=== PATIENT | male | born 1990 | race Caucasian/White ===

== ENCOUNTER → 2016-06-16 | Outpatient (CLI) | payer OTHER ==
[2016-06-16 11:34] LABS: MEAN CORPUSCULAR HEMOGLOBIN 30.6 pg (27.0-33.0); MEAN CORPUSCULAR VOLUME 87.4 fl (80.0-96.0); RED CELL DISTRIBUTION WIDTH 12.3 % (11.5-14.5)
[2016-06-16 11:58] LABS: ALBUMIN 4.4 GM/DL (3.2-5.2); ALBUMIN/GLOBULIN RATIO 1.69 (1.00-1.93); ALKALINE PHOSPHATASE 95 U/L (45-117); ALT/SGPT 63 U/L (12-78); ANION GAP 7 MEQ/L (8-16); AST/SGOT 28 U/L (15-37); BILIRUBIN,DIRECT 0.2 MG/DL (0.0-0.2); BILIRUBIN,TOTAL 0.7 MG/DL (0.2-1.0); BLOOD UREA NITROGEN 20 MG/DL (7-18); CALCIUM LEVEL 9.3 MG/DL (8.5-10.1); CARBON DIOXIDE LEVEL 31 MEQ/L (21-32); CHLORIDE LEVEL 104 MEQ/L (98-107); CREATININE FOR GFR 0.85 MG/DL (0.70-1.30); GLOMERULAR FILTRATION RATE > 60.0 (>60); GLUCOSE, FASTING 81 MG/DL (70-105); PHOSPHORUS LEVEL 3.1 MG/DL (2.5-4.9); POTASSIUM SERUM 4.2 MEQ/L (3.5-5.1); SODIUM LEVEL 142 MEQ/L (136-145)
== END ==
LOC: M LAB 11:05
PROVIDERS: ATTEND Podiatrist Foot & Ankle Surgery
DX: B35.1 Tinea unguium (principal); Z79.899 Other long term (current) drug therapy

== ENCOUNTER → 2016-07-28 | Outpatient (CLI) | payer OTHER ==
[2016-07-28 08:50] LABS: MEAN CORPUSCULAR HEMOGLOBIN 30.7 pg (27.0-33.0); MEAN CORPUSCULAR HGB CONC 34.2 g/dl (32.0-36.5); MEAN CORPUSCULAR VOLUME 89.7 fl (80.0-96.0); RED CELL DISTRIBUTION WIDTH 12.7 % (11.5-14.5); WHITE BLOOD COUNT 5.6 K/mm3 (4.0-10.0)
[2016-07-28 09:22] LABS: ALBUMIN 4.2 GM/DL (3.2-5.2); ALBUMIN/GLOBULIN RATIO 1.62 (1.00-1.93); ALKALINE PHOSPHATASE 97 U/L (45-117); ALT/SGPT 46 U/L (12-78); ANION GAP 8 MEQ/L (8-16); AST/SGOT 25 U/L (15-37); BILIRUBIN,DIRECT 0.1 MG/DL (0.0-0.2); BILIRUBIN,TOTAL 0.5 MG/DL (0.2-1.0); BLOOD UREA NITROGEN 18 MG/DL (7-18); CALCIUM LEVEL 9.1 MG/DL (8.5-10.1); CARBON DIOXIDE LEVEL 29 MEQ/L (21-32); CHLORIDE LEVEL 105 MEQ/L (98-107); CREATININE FOR GFR 0.87 MG/DL (0.70-1.30); GLOMERULAR FILTRATION RATE > 60.0 (>60); GLUCOSE, FASTING 82 MG/DL (70-105); PHOSPHORUS LEVEL 3.1 MG/DL (2.5-4.9); POTASSIUM SERUM 4.2 MEQ/L (3.5-5.1); SODIUM LEVEL 142 MEQ/L (136-145); TOTAL PROTEIN 6.8 GM/DL (6.4-8.2)
== END ==
LOC: M LAB 08:21
PROVIDERS: ATTEND Podiatrist Foot & Ankle Surgery
DX: Z51.81 Encounter for therapeutic drug level monitoring (principal); Z79.899 Other long term (current) drug therapy

== ENCOUNTER 2017-02-20 08:23 | Outpatient (RCR) | payer OTHER | END 2017-02-23 | LOC: M PT 08:23 | PROVIDERS: ATTEND Psychiatry & Neurology Neurology | DX: Z51.89 Encounter for other specified aftercare (principal); R42 Dizziness and giddiness ==

== ENCOUNTER 2017-02-27 08:18 | Outpatient (RCR) | payer OTHER | END 2017-03-26 | LOC: M PT 08:18 | DX: R42 Dizziness and giddiness (principal) | CPT/HCPCS: 97112 ==

== ENCOUNTER 2017-04-04 12:15 | Outpatient (RCR) | payer OTHER | END 2017-04-26 | LOC: M PT 12:15 | DX: Z51.89 Encounter for other specified aftercare (principal); R42 Dizziness and giddiness | CPT/HCPCS: 97112 ==

== ENCOUNTER 2017-04-27 08:30 | Outpatient (RCR) | payer OTHER | END 2017-05-24 | LOC: M PT 08:30 | DX: Z51.89 Encounter for other specified aftercare (principal); R42 Dizziness and giddiness | CPT/HCPCS: 97112 ==

== ENCOUNTER → 2019-01-21 | Outpatient (REF) | payer OTHER ==
[2019-01-21 17:29] LABS: APPEARANCE, URINE CLEAR (CLEAR); BACTERIA, URINE AUTO NEGATIVE (NEGATIVE); BILIRUBIN, URINE AUTO NEGATIVE (NEGATIVE); BLOOD, URINE BLOOD NEGATIVE (NEGATIVE); COLOR, URINE YELLOW (YELLOW); GLUCOSE, URINE (UA) AUTO NEGATIVE (NEGATIVE); KETONE, URINE AUTO NEGATIVE (NEGATIVE); LEUKOCYTE ESTERASE, URINE AUTO NEGATIVE (NEGATIVE); MUCUS, URINE SMALL (NEGATIVE); NITRITE, URINE AUTO NEGATIVE (NEGATIVE); PROTEIN, URINE AUTO NEGATIVE (NEGATIVE); RBC, URINE AUTO 1 /HPF (0-3); SPECIFIC GRAVITY URINE AUTO 1.024 (1.002-1.035); SQUAMOUS EPITHELIAL CELL UR AU 0 /HPF (0-6); WBC, URINE AUTO 1 /HPF (0-3)
== END ==
LOC: M SMT 16:52
PROVIDERS: ATTEND Nurse Practitioner Women's Health
DX: R31.0 Gross hematuria (principal)

== ENCOUNTER → 2019-01-30 | Outpatient (CLI) | payer OTHER ==
[~2019-01-30] MED LIST: ISOVUE-370 76% 100ML VIAL (Q9967) As Ordered ONE
--- NOTE | 2019-01-31 13:12 | REP ---
Clinical: Gross hematuria. Comparison: 10/14/2012. Technique: Axial precontrast, contrast enhanced, and delayed images of the abdomen and pelvis including coronal and sagittal re-formations as well as 3-D MIP urogram. 100 ml Isovue 370 intravenous contrast material administered without complication. Findings: The urinary tract system including bilateral kidneys, ureters and bladder are normal. Mild fatty infiltration to the liver noted without focal hepatic lesion. Spleen, pancreas, gallbladder, and bilateral adrenal glands are normal. The enteric system is without obstruction or acute inflammatory process. Pelvis demonstrates normal bladder and age appropriate prostate/seminal vesicles. No ascites. No free air. No adenopathy. Abdominal aorta and vasculature normal. Surrounding musculoskeletal structures are intact. Impression: 1. Normal urinary tract system. 2. Mild hepatic steatosis. Electronically Signed by Isiah Lopez MD 01/31/2019 01:02 P
== END ==
LOC: M RAD 16:38
PROVIDERS: ATTEND Nurse Practitioner Women's Health
DX: R31.0 Gross hematuria (principal); K76.0 Fatty (change of) liver, not elsewhere classified
CPT/HCPCS: 74178; Q9967

== ENCOUNTER → 2019-02-14 | Outpatient (REF) | payer OTHER ==
[2019-02-14 13:44] LABS: APPEARANCE, URINE CLEAR (CLEAR); BACTERIA, URINE AUTO NEGATIVE (NEGATIVE); BILIRUBIN, URINE AUTO NEGATIVE (NEGATIVE); BLOOD, URINE BLOOD NEGATIVE (NEGATIVE); COLOR, URINE YELLOW (YELLOW); GLUCOSE, URINE (UA) AUTO NEGATIVE (NEGATIVE); KETONE, URINE AUTO NEGATIVE (NEGATIVE); LEUKOCYTE ESTERASE, URINE AUTO NEGATIVE (NEGATIVE); MUCUS, URINE SMALL (NEGATIVE); NITRITE, URINE AUTO NEGATIVE (NEGATIVE); PROTEIN, URINE AUTO NEGATIVE (NEGATIVE); RBC, URINE AUTO 0 /HPF (0-3); SPECIFIC GRAVITY URINE AUTO 1.026 (1.002-1.035); SQUAMOUS EPITHELIAL CELL UR AU 0 /HPF (0-6); UROBILINOGEN, URINE AUTO 0.2 mg/dL (0.0-2.0); WBC, URINE AUTO 1 /HPF (0-3)
== END ==
LOC: M SMT 13:02
PROVIDERS: ATTEND Nurse Practitioner Women's Health
DX: R36.1 Hematospermia (principal)

== ENCOUNTER → 2019-02-28 | Outpatient (CLI) | payer OTHER ==
--- NOTE | 2019-02-28 12:33 | REP ---
SCROTAL ULTRASOUND: Real-time sonographic evaluation of the scrotum and contents are performed. No testicular mass is seen. There is no evidence of testicular torsion. Blood flow is seen in each testicle with duplex Doppler evaluation. The right testicle measures 5.2 x 2.3 x 2.9 cm and the left testicle measures 4.1 x 2.1 x 2.6 cm, right testicular volume is 18.1 mL and left 11.7 mL. Diffuse scattered tiny cystic changes are seen in the mediastinum testis bilaterally compatible with mild tubular ectasia. Epididymis is unremarkable. I do not see a significant varicocele. IMPRESSION: No testicular mass or torsion. Mild tubular ectasia in the mediastinum testis bilaterally. Electronically Signed by Jeferson Botello MD 02/28/2019 12:52 P
== END ==
LOC: M RAD 11:36
PROVIDERS: ATTEND Nurse Practitioner Women's Health
DX: N50.89 Other specified disorders of the male genital organs (principal)

== ENCOUNTER 2019-04-18 17:43 | Emergency (ER) | payer OTHER ==
[~2019-04-18] VITALS: Ht 185.4 cm; Wt 115.3 kg
[2019-04-18 17:44] VITALS: BP 136/82
[2019-04-18] MEDS ORDERED: IBUP-1022 PO (17:53)
[2019-04-18] MEDS ORDERED: DIVA1CAP PO (17:53)
[2019-04-18] MEDS ORDERED: CYMB60CA3 PO (17:56)
[2019-04-18] MEDS ORDERED: METOCLOPRAMIDE 10 MG TAB PO ONE (19:15)
--- NOTE | 2019-04-18 19:34 | REPVR ---
PROCEDURE INFORMATION: Exam: CT Head Without Contrast Exam date and time: 04/18/2019 7:23 PM Age: 28 years old Clinical indication: Injury or trauma; Fall; Initial encounter; Concussion / head injury; Consciousness not specified TECHNIQUE: Imaging protocol: Computed tomography of the head without contrast. Radiation optimization: All CT scans at this facility use at least one of these dose optimization techniques: automated exposure control; mA and/or kV adjustment per patient size (includes targeted exams where dose is matched to clinical indication); or iterative reconstruction. COMPARISON: CT Head without contrast 05/16/2013 8:18 PM FINDINGS: Brain: Normal. No hemorrhage. Unremarkable white matter. No mass effect. Ventricles: Normal. No ventriculomegaly. Bones/joints: Unremarkable. No acute fracture. Sinuses: Visualized sinuses are unremarkable. No fluid levels. Mastoid air cells: Visualized mastoid air cells are well aerated. Soft tissues: Unremarkable. IMPRESSION: No acute intracranial abnormality. Electronically signed by: Camilo Antoine On 04/18/2019 19:34:16 PM
== END 2019-04-18 20:11 | disposition home or self-care (01) ==
LOC: M ED 17:43
DX: S00.01XA Abrasion of scalp, initial encounter (principal); W01.10XA Fall on same level from slipping, tripping and stumbling with subsequent striking against unspecified object, initial encounter; Y92.019 Unspecified place in single-family (private) house as the place of occurrence of the external cause; Z87.820 Personal history of traumatic brain injury; I10 Essential (primary) hypertension; Z79.899 Other long term (current) drug therapy

== ENCOUNTER 2019-09-19 14:06 | Emergency (ER) | payer OTHER ==
[~2019-09-19] VITALS: Ht 185.4 cm; Wt 113.6 kg
[~2019-09-19 14:06] MED LIST changes: +CYMB60CA3 PO; +DIVA1CAP PO; +IBUP-1022 PO; -ISOVUE-370 76% 100ML VIAL (Q9967) As Ordered ONE
[2019-09-19 14:33] LABS: HEMATOCRIT 43.3 % (42.0-52.0); HEMOGLOBIN 15.5 g/dl (13.5-17.5); MEAN CORPUSCULAR HEMOGLOBIN 30.6 pg (27.0-33.0); MEAN CORPUSCULAR HGB CONC 35.8 g/dl (32.0-36.5); MEAN CORPUSCULAR VOLUME 85.4 fl (80.0-96.0); PLATELET COUNT, AUTOMATED 259 10^3/uL (150-450); RED BLOOD COUNT 5.07 10^6/uL (4.30-6.10); WHITE BLOOD COUNT 6.6 10^3/uL (4.0-10.0)
[2019-09-19 15:14] LABS: ACETAMINOPHEN LEVEL < 2.0 UG/ML (10.0-30.0); ALBUMIN 4.4 GM/DL (3.2-5.2); ALT/SGPT 31 U/L (12-78); BILIRUBIN,DIRECT < 0.1 MG/DL (0.0-0.2); BILIRUBIN,TOTAL 0.8 MG/DL (0.2-1.0); BLOOD UREA NITROGEN 13 MG/DL (7-18); CALCIUM LEVEL 10.5 MG/DL (8.5-10.1); CARBON DIOXIDE LEVEL 22 MEQ/L (21-32); CHLORIDE LEVEL 109 MEQ/L (98-107); CREATININE FOR GFR 0.94 MG/DL (0.70-1.30); ETHYL ALCOHOL (ETHANOL) 0.152 % (0.000-0.010); GLOMERULAR FILTRATION RATE > 60.0 (>60); GLUCOSE, FASTING 99 MG/DL (70-100); POTASSIUM SERUM 3.7 MEQ/L (3.5-5.1); SALICYLATE LEVEL < 1.7 MG/DL (5.0-30.0); SODIUM LEVEL 141 MEQ/L (136-145); TOTAL PROTEIN 7.6 GM/DL (6.4-8.2)
[2019-09-19 17:08] LABS: AMPHETAMINES LEVEL URINE NEGATIVE (NEGATIVE); BARBITURATES URINE NEGATIVE (NEGATIVE); BENZODIAZEPINES URINE NEGATIVE (NEGATIVE); CANNABINOIDS URINE NEGATIVE (NEGATIVE); COCAINE METABOLITE URINE NEGATIVE (NEGATIVE); METHADONE URINE NEGATIVE (NEGATIVE); OPIATES URINE NEGATIVE (NEGATIVE); PHENCYCLIDINE URINE NEGATIVE (NEGATIVE)
[2019-09-19] MEDS ORDERED: IBUPROFEN 800 MG TAB PO ONE (18:45)
[2019-09-19] MEDS ORDERED: BUSP30TA PO (18:50)
[2019-09-19] MEDS ORDERED: DULoxetine 30 MG CAP (CYMBALTA) PO ONE (19:00)
[2019-09-19 19:11] LABS: VALPROIC ACID (DEPAKOTE) 53.7 UG/ML (50.0-100.0)
--- NOTE | 2019-09-19 21:49 | ECGEPIP ---
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
[2019-09-19] MEDS ORDERED: DIVALPROEX 500 MG TAB PO ONE (23:00)
[2019-09-20 01:42] LABS: APPEARANCE, URINE HAZY (CLEAR); BACTERIA, URINE AUTO NEGATIVE (NEGATIVE); BILIRUBIN, URINE AUTO NEGATIVE (NEGATIVE); BLOOD, URINE BLOOD NEGATIVE (NEGATIVE); COLOR, URINE YELLOW (YELLOW); GLUCOSE, URINE (UA) AUTO NEGATIVE (NEGATIVE); KETONE, URINE AUTO TRACE mg/dL (NEGATIVE); LEUKOCYTE ESTERASE, URINE AUTO NEGATIVE (NEGATIVE); MUCUS, URINE SMALL (NEGATIVE); NITRITE, URINE AUTO NEGATIVE (NEGATIVE); PROTEIN, URINE AUTO NEGATIVE (NEGATIVE); RBC, URINE AUTO 0 /HPF (0-3); SPECIFIC GRAVITY URINE AUTO 1.021 (1.002-1.035); SQUAMOUS EPITHELIAL CELL UR AU 0 /HPF (0-6); UROBILINOGEN, URINE AUTO 0.2 mg/dL (0.0-2.0); WBC, URINE AUTO 1 /HPF (0-3)
--- NOTE | 2019-09-20 05:37 | ECGEPIP ---
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
[2019-09-20 05:50] VITALS: BP 138/68
== END 2019-09-20 06:37 ==
LOC: M ED 14:06
DX: R45.851 Suicidal ideations (principal); F43.10 Post-traumatic stress disorder, unspecified; F32.9 Major depressive disorder, single episode, unspecified; F12.90 Cannabis use, unspecified, uncomplicated; Z79.899 Other long term (current) drug therapy; Z91.5 Personal history of self-harm
CPT/HCPCS: 80048; 80076; 80164; 80307; 81001; 84443; 85027; 87486; 87581; 87633; 87798; 93005; 99285; G0480

== ENCOUNTER 2019-12-02 14:04 | Emergency (ER) | payer OTHER ==
[~2019-12-02] VITALS: Ht 185.4 cm; Wt 113.3 kg
[~2019-12-02 14:04] MED LIST changes: +BUSP30TA PO
[2019-12-02 14:05] VITALS: BP 138/78
[2019-12-02] MEDS ORDERED: predniSONE 20 MG TAB PO ONE (15:15)
[2019-12-02] MEDS ORDERED: diphenhydrAMINE 50MG CAP PO ONE (15:15)
[2019-12-02] MEDS ORDERED: PRED10TA2 PO (15:26)
[2019-12-02] MEDS ORDERED: KEFL500C17 PO (15:26)
== END 2019-12-02 15:39 | disposition home or self-care (01) ==
LOC: M ED 14:04
DX: T63.441A Toxic effect of venom of bees, accidental (unintentional), initial encounter (principal); Y92.9 Unspecified place or not applicable; Y93.9 Activity, unspecified; Y99.9 Unspecified external cause status; Z79.899 Other long term (current) drug therapy; Z87.820 Personal history of traumatic brain injury

== ENCOUNTER → 2020-04-01 | Outpatient (REF) | payer OTHER ==
[~2020-04-01] MED LIST changes: +KEFL500C17 PO; +PRED10TA2 PO
[2020-04-01 13:11] LABS: BASO # 0.1 10^3/uL (0.0-0.2); EOS # 0.4 10^3/uL (0.0-0.5); EOS % 5.5 % (0.0-3.0); HEMATOCRIT 45.6 % (42.0-52.0); HEMOGLOBIN 15.5 g/dl (13.5-17.5); LYMPH # 1.9 10^3/uL (1.5-5.0); LYMPH % 27.7 % (24.0-44.0); MEAN CORPUSCULAR HEMOGLOBIN 30.5 pg (27.0-33.0); MEAN CORPUSCULAR VOLUME 89.6 fl (80.0-96.0); MONO # 0.6 10^3/uL (0.0-0.8); MONO % 8.2 % (0.0-5.0); NEUTROPHILS # 3.8 10^3/uL (1.5-8.5); NEUTROPHILS % 57.5 % (36.0-66.0); PLATELET COUNT, AUTOMATED 255 10^3/uL (150-450); RED BLOOD COUNT 5.09 10^6/uL (4.30-6.10); WHITE BLOOD COUNT 6.7 10^3/uL (4.0-10.0)
[2020-04-01 13:57] LABS: ALBUMIN 4.5 GM/DL (3.2-5.2); ALT/SGPT 34 U/L (12-78); BILIRUBIN,TOTAL 1.1 MG/DL (0.2-1.0); BLOOD UREA NITROGEN 14 MG/DL (7-18); CALCIUM LEVEL 9.6 MG/DL (8.5-10.1); CARBON DIOXIDE LEVEL 31 MEQ/L (21-32); CHLORIDE LEVEL 103 MEQ/L (98-107); CHOLESTEROL LEVEL 233 MG/DL (<200); CHOLESTEROL RISK RATIO 4.396 (<5); CREATININE FOR GFR 0.88 MG/DL (0.70-1.30); FREE T4 0.93 NG/DL (0.76-1.46); GLOMERULAR FILTRATION RATE > 60.0 (>60); GLUCOSE, FASTING 95 MG/DL (70-100); HDL CHOLESTEROL 53 MG/DL (>40); LDL CHOLESTEROL 152 MG/DL (<100); NON-HDL-C 180 MG/DL; POTASSIUM SERUM 4.3 MEQ/L (3.5-5.1); SODIUM LEVEL 138 MEQ/L (136-145); TOTAL PROTEIN 7.5 GM/DL (6.4-8.2); TRIGLYCERIDES LEVEL 142 MG/DL (<150)
[2020-04-01 14:22] LABS: HEMOGLOBIN A1c 5.3 %
== END ==
LOC: M SFHCPLAZ 10:02
PROVIDERS: ATTEND Nurse Practitioner Family
DX: F32.9 Major depressive disorder, single episode, unspecified (principal); R73.01 Impaired fasting glucose; E78.5 Hyperlipidemia, unspecified; N52.9 Male erectile dysfunction, unspecified

== ENCOUNTER 2020-05-03 12:43 | Emergency (ER) | payer OTHER ==
[2020-05-03 14:08] LABS: BASO % 0.5 % (0.0-1.0); EOS # 0.1 10^3/uL (0.0-0.5); EOS % 1.8 % (0.0-3.0); HEMATOCRIT 40.5 % (42.0-52.0); HEMOGLOBIN 13.8 g/dl (13.5-17.5); LYMPH % 26.5 % (24.0-44.0); MEAN CORPUSCULAR HEMOGLOBIN 29.5 pg (27.0-33.0); MEAN CORPUSCULAR HGB CONC 34.1 g/dl (32.0-36.5); MEAN CORPUSCULAR VOLUME 86.5 fl (80.0-96.0); MONO # 0.5 10^3/uL (0.0-0.8); MONO % 11.7 % (0.0-5.0); NEUTROPHILS # 2.3 10^3/uL (1.5-8.5); PLATELET COUNT, AUTOMATED 169 10^3/uL (150-450); RED BLOOD COUNT 4.68 10^6/uL (4.30-6.10); WHITE BLOOD COUNT 3.9 10^3/uL (4.0-10.0)
[2020-05-03 14:20] LABS: INR 0.9; PROTHROMBIN TIME 12.3 SECONDS (12.5-14.3)
[2020-05-03 14:21] LABS: PARTIAL THROMBOPLASTIN TIME 28.5 SECONDS (24.2-38.5)
[2020-05-03 14:23] LABS: D-DIMER QUANT 416.22 ng/ml (<500)
--- NOTE | 2020-05-03 14:25 | REP ---
INDICATION: Coronavirus workup. COMPARISON: 02/28/2012. TECHNIQUE: SINGLE PORTABLE AP VIEW OF THE CHEST WAS PERFORMED. FINDINGS: There is mild patchy left perihilar infiltrate. There is no infiltrate of the right lung. The heart is normal in size. The mediastinal silhouette is unremarkable. IMPRESSION: Mild patchy left perihilar infiltrate. <Electronically signed by Jeferson Botello > 05/03/20 2161
[2020-05-03 14:49] LABS: ALBUMIN 3.7 GM/DL (3.2-5.2); ALT/SGPT 29 U/L (12-78); BILIRUBIN,TOTAL 0.6 MG/DL (0.2-1.0); BLOOD UREA NITROGEN 18 MG/DL (7-18); C REACTIVE PROTEIN QUANTITATIV 1.79 MG/DL (0.00-0.30); CALCIUM LEVEL 8.8 MG/DL (8.5-10.1); CARBON DIOXIDE LEVEL 25 MEQ/L (21-32); CHLORIDE LEVEL 107 MEQ/L (98-107); CK-MB VALUE MASS 1.1 NG/ML (<3.6); CPK CREATINE PHOSPHOKINASE 87 U/L (39-308); CREATININE FOR GFR 0.74 MG/DL (0.70-1.30); FERRITIN 168 NG/ML (26-388); GLOMERULAR FILTRATION RATE > 60.0 (>60); GLUCOSE, FASTING 85 MG/DL (70-100); LDH LACTATE DEHYDROGENASE 227 U/L (87-241); MAGNESIUM LEVEL 1.9 MG/DL (1.8-2.4); MB/CK RELATIVE INDEX 1.26 (< OR =4); SODIUM LEVEL 140 MEQ/L (136-145); TOTAL PROTEIN 6.7 GM/DL (6.4-8.2); TROPONIN I < 0.02 NG/ML (< 0.10)
[2020-05-03] MEDS ORDERED: DOXY100C37 PO (15:20)
[2020-05-03 16:00] VITALS: BP 134/90
[2020-05-03] MEDS ORDERED: DOXYCYCLINE HYCLATE 100MG TABLET PO ONE (16:30)
--- NOTE | 2020-05-03 17:11 | ECGEPIP ---
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
== END 2020-05-03 16:25 | disposition home or self-care (01) ==
LOC: M ED 12:43
DX: J18.9 Pneumonia, unspecified organism (principal); U07.1 COVID-19; Z79.899 Other long term (current) drug therapy

== ENCOUNTER → 2020-05-06 | Outpatient (CLI) | payer OTHER ==
[~2020-05-06] MED LIST changes: +DOXY100C37 PO
--- NOTE | 2020-05-06 16:25 | REPPI ---
INDICATION: FEVER, HX COVID. COMPARISON: Comparison chest x-ray 03 May 2020. TECHNIQUE: Three views... FINDINGS: There is more extensive infiltrate in the left perihilar region and left lower lobe region today than was present on 03 May 2020. There are some increased markings in the right perihilar region as well. Heart size is normal. No evidence of pleural effusion. IMPRESSION: There is evidence of radiographic progression in left perihilar and left lower lobe infiltrates. Some infiltrate is suspected in the right perihilar region as well.. <Electronically signed by Bennett Wade > 05/06/20 9726
== END ==
LOC: M PLAIMG 15:57
PROVIDERS: ATTEND Physician Assistant
DX: R50.9 Fever, unspecified (principal); J18.9 Pneumonia, unspecified organism; Z86.16 Personal history of COVID-19

== ENCOUNTER → 2020-05-11 | Outpatient (REF) | payer OTHER ==
[2020-05-11 11:00] LABS: BASO # 0.1 10^3/uL (0.0-0.2); EOS # 0.2 10^3/uL (0.0-0.5); EOS % 3.2 % (0.0-3.0); HEMATOCRIT 42.9 % (42.0-52.0); HEMOGLOBIN 14.5 g/dl (13.5-17.5); LYMPH # 1.5 10^3/uL (1.5-5.0); LYMPH % 24.5 % (24.0-44.0); MEAN CORPUSCULAR HEMOGLOBIN 30.2 pg (27.0-33.0); MEAN CORPUSCULAR HGB CONC 33.8 g/dl (32.0-36.5); MEAN CORPUSCULAR VOLUME 89.4 fl (80.0-96.0); MONO # 0.6 10^3/uL (0.0-0.8); MONO % 9.5 % (2.0-8.0); NEUTROPHILS # 3.7 10^3/uL (1.5-8.5); NEUTROPHILS % 58.8 % (36.0-66.0); PLATELET COUNT, AUTOMATED 307 10^3/uL (150-450); WHITE BLOOD COUNT 6.3 10^3/uL (4.0-10.0)
[2020-05-11 11:26] LABS: ERYTHROCYTE SEDIMENTATION RATE 23 mm/hr (0-15)
[2020-05-11 11:31] LABS: ALBUMIN 3.8 GM/DL (3.2-5.2); ALT/SGPT 34 U/L (12-78); BILIRUBIN,TOTAL 0.4 MG/DL (0.2-1.0); BLOOD UREA NITROGEN 22 MG/DL (7-18); C REACTIVE PROTEIN QUANTITATIV 0.36 MG/DL (0.00-0.30); CALCIUM LEVEL 9.4 MG/DL (8.5-10.1); CARBON DIOXIDE LEVEL 30 MEQ/L (21-32); CHLORIDE LEVEL 107 MEQ/L (98-107); CREATININE FOR GFR 0.76 MG/DL (0.70-1.30); GLOMERULAR FILTRATION RATE > 60.0 (>60); GLUCOSE, FASTING 90 MG/DL (70-100); POTASSIUM SERUM 5.3 MEQ/L (3.5-5.1); SODIUM LEVEL 143 MEQ/L (136-145); TOTAL PROTEIN 6.9 GM/DL (6.4-8.2)
== END ==
LOC: M SFHCPLAZ 09:59
PROVIDERS: ATTEND Physician Assistant
DX: R53.83 Other fatigue (principal); R06.02 Shortness of breath; J18.9 Pneumonia, unspecified organism; R68.2 Dry mouth, unspecified

== ENCOUNTER 2020-05-20 18:20 | Emergency (ER) | payer OTHER ==
[~2020-05-20] VITALS: Ht 185.4 cm; Wt 113.6 kg
--- OUTSIDE RECORDS SUMMARY | 2020-05-20 18:33 | CCD ---
Author Author [facility] Organization [facility] Address Unknown Phone Unavailable Care Team Providers Care Ground Service Equipment Mechanic Name Role Phone Karyan Lackey Unavailable PROBLEMS Type Condition ICD9-CM Code [id number] Code Onset Dates Condition S tatus W/U Status Risk SNOMED Code Notes Problem Obstructive sleep apnea G47.33 Active confirmed 69665080 Problem Obstructive sleep apnea (adult) (pediatric) G47.33 Active confirmed 82977174 Problem Major depressive disorder F32.9 Active confirmed 692843426 Problem Erectile dysfunction N52.9 Active confirmed 359303282 Problem PTSD (post-traumatic stress disorder) F43.10 Ac tive confirmed 85069128 Problem Hyperlipidemia E78.5 Active confirmed 77970 004 ALLERGIES Allergen (clinical drug ingredient) Drug/Non Drug Allergy do cumented on EMR Reaction Allergy Type Onset Date Status sildenafil Sildenafil Citrate([facility] Code:[address]-39) Unknown Drug Allergy Active ENCOUNTERS from 1990 to 2020-05-13 Encounter Location Date Provider Diagnosis [address] [address] Apr, Karyna Lackey Pneumonia of both lungs due to infectiou s organism, unspecified part of lung J18.9 and Fever in other diseases R50.81 IMMUNIZATIONS Vaccine Route Administration Date Status Imm: Influenza 18 yrs & older Flublok IM Intramuscular Apr 01, 2 021 Administered SOCIAL HISTORY Tobacco Use: Social History Observation Description Date Details (start date - stop date) Never Smoker Sex Assigned At : Social History Observation Description Sex Assigned At Unknown Education: Question Answer Notes Level of Education: Finished High School Language: Question Answer Notes Languages spoken: Turkmen Yazdanism: Question Answer Notes Yazdanism No latter-day beliefs that would impact health care. Sexual Hx: Question Answer Notes Had sex in the last 12 months (vaginal, oral, or anal)? Yes Have you ever had an STD? No with Women only Use protection? No Alcohol Screening: Question Answer Notes Did you have a drink containing alcohol in the past year? Ye s Points 1 Interpretation Negative How often did you have a drink containing alcohol in t he past year? Monthly or less (1 point) Tobacco Use: Question Answer Notes Are you a: never smoker REASON FOR REFERRAL No Information VITAL SIGNS Weight 252 lbs Apr, Height 73 in Apr, BMI 33.24 kg/m2 Apr, Heart Rate 98 /min Apr, Respiratory Rate 18 /min Apr, Temperature 98.8 degrees Fahrenheit Apr, Oximetry 95 Apr, Blood pressure systolic 118 mm Hg Apr, Blood pressure diastolic 88 mm Hg Apr, MEDICATIONS Medication SIG (Take, Route, Frequency, Duration) Notes Start Da te End Date Status Levaquin 750 MG 1 tablet Orally Once a day for 5 day(s) Apr, Not-Taking Cetirizine HCl 10 MG 1 tablet Orally Once a day for 30 day(s) Active Cymbalta 60 MG 2 tablet po Once daily Active ProAir HFA 108 (90 Base) MCG/ACT 2 puffs as needed Inh alation Q4-6 hours as needed for 10 days Apr, Active Cephalexin 500 MG TAKE ONE CAPSULE BY MOUTH EVERY 12 HOURS Oral for 1 0 Not-Taking Divalproex Sodium 500 MG 2 tablet Orally Daily Active PROCEDURES No Information RESULTS No Results REASON FOR VISIT recheck pneumonia MEDICAL (GENERAL) HISTORY Type Description Date Medical History Infertility Medical History ED Medical History HTN Medical History PTSD Medical History TBI Medical History vertigo Medical History depression Medical History anxiety Medical History ROXANNE- C-pap Surgical History varicocele Surgical History double hernia repair Surgical History cystoscopy 03/06/2019 Hospitalization History mental health --[facility] then [place] 08/2019 Goals Section No Information Health Concerns No Information MEDICAL EQUIPMENT No Information MENTAL STATUS No Information FUNCTIONAL STATUS No Information ASSESSMENTS Encounter Date Diagnosis Assessment Notes Treatment Notes Treatm ent Clinical Notes Apr, Pneumonia of both lungs due to infectious organism, unspecified part of lung (ICD-10 - J18.9) Will prescribe inhaler. Pt to continue Levaquin. Will f/u on Monday. Pt to seek emergent medical care over the weekend with worsening of sxs. Pt agrees with plan Total time caring for the patient on the day of the encounter was 15 min Apr, Fever in other diseases (ICD-10 - R50.81) PLAN OF TREATMENT Treatment Notes Assessment Notes Clinical Notes Pneumonia of both lungs due to infectious organism, un specified part of lung Will prescribe inhaler. Pt to continue Levaquin. Will f/u on Monday. Pt to seek emergent medical care over the weekend with worsening of sxs. Pt agrees with plan Total time caring for the patient on the day of the encounter was 15 min Next Appt Details Monday with Luis; recheck pneumonia Reas on: Provider Name:Perlita Stevens, 07-28 09:30:00 AM, [facility] [place], [address], Insurance Providers Payer Name Payer Address Payer Phone Insured Name Patient Relati onship to Insured Coverage Start Date Coverage End Date [facility] [address] [facility] [phone] NIDIA TINEO self
--- OUTSIDE RECORDS SUMMARY | 2020-05-20 18:33 | CCD ---
Author Author [facility] Organization [facility] Address Unknown Phone Unavailable Care Team Providers Care Process Control Technician Name Role Phone Perlita Stevens Unavailable PROBLEMS Type Condition ICD9-CM Code [id number] Code Onset Dates Condition S tatus W/U Status Risk SNOMED Code Notes Problem Obstructive sleep apnea G47.33 Active confirmed 79579028 Problem Obstructive sleep apnea (adult) (pediatric) G47.33 Active confirmed 77840004 Problem Major depressive disorder F32.9 Active confirmed 255319603 Problem Erectile dysfunction N52.9 Active confirmed 322913930 Problem PTSD (post-traumatic stress disorder) F43.10 Ac tive confirmed 38230762 Problem Hyperlipidemia E78.5 Active confirmed 95741 004 ALLERGIES Allergen (clinical drug ingredient) Drug/Non Drug Allergy do cumented on EMR Reaction Allergy Type Onset Date Status sildenafil Sildenafil Citrate([facility] Code:[address]-95) Unknown Drug Allergy Active ENCOUNTERS from 1990 to 2020-05-07 Encounter Location Date Provider Diagnosis [address] [address] Apr, Perlita Gracesaad IMMUNIZATIONS Vaccine Route Administration Date Status Influenza (18 yrs & older) Flublok IM Intramuscular Apr 01, 2020 Administered SOCIAL HISTORY Tobacco Use: Social History Observation Description Date Details (start date - stop date) Never Smoker Sex Assigned At : Social History Observation Description Sex Assigned At Unknown Education: Question Answer Notes Level of Education: Finished High School Language: Question Answer Notes Languages spoken: Malay Christianity: Question Answer Notes Christianity No adventism beliefs that would impact health care. Sexual [...] REASON FOR REFERRAL No Information VITAL SIGNS No information MEDICATIONS Medication SIG (Take, Route, Frequency, Duration) Notes Start Da te End Date Status Cymbalta 60 MG 2 tablet po Once daily Active Divalproex Sodium 500 MG 2 tablet Orally Daily Active Cephalexin 500 MG TAKE ONE CAPSULE BY MOUTH EVERY 12 HOURS Oral for 1 0 Not-Taking Levaquin 750 MG 1 tablet Orally Once a day for 5 day(s) Apr, Active Cetirizine HCl 10 MG 1 tablet Orally Once a day for 30 day(s) Active PROCEDURES No Information RESULTS No Results REASON FOR VISIT Covid 19 PNA/ OFF iSOLATION YESTERDAY/SOB,Fevers, cough MEDICAL (GENERAL) HISTORY Type Description Date Medical History Infertility Medical History ED Medical History HTN Medical History PTSD Medical History TBI Medical History vertigo Medical History depression Medical History anxiety Medical History ROXANNE- C-pap Surgical History vericocele Surgical History double hernia repair Surgical History cystoscopy 03/06/2019 Hospitalization History mental health [facility] [place] 08/2019 Goals Section No Information Health Concerns No Information MEDICAL EQUIPMENT No Information MENTAL STATUS No Information FUNCTIONAL STATUS No Information ASSESSMENTS No Information PLAN OF TREATMENT Medication Medication Name Sig Start Date Stop Date Levaquin 750 MG 1 tablet Orally Once a day for 5 day(s) Apr, Next Appt Details Provider Name:Karyna Lackey, 2- 09:30:00 AM, [address] [place] [address], [phone], Provider Name:Perlita Stevens, - 09:30:00 AM, [address] [place] [address], [phone], Insurance Providers Payer Name Payer Address Payer Phone Insured Name Patient Relati onship to Insured Coverage Start Date Coverage End Date [facility] [address] [facility] [phone] NIDIA TINEO self
--- OUTSIDE RECORDS SUMMARY | 2020-05-20 18:33 | CCD ---
Author Author [facility] Organization [facility] Address Unknown Phone Unavailable Care Team Providers Care Billing Rep Name Role Phone Perlita Stevens Unavailable PROBLEMS Type Condition ICD9-CM Code [id number] Code Onset Dates Condition S tatus SNOMED Code Notes Problem Obstructive sleep apnea G47.33 Active 17990877 Problem Obstructive sleep apnea (adult) (pediatric) G47.33 Active 49271550 Problem Major depressive disorder F32.9 Active 759571 000 Problem Erectile dysfunction N52.9 Active 815519701 Problem PTSD (post-traumatic stress disorder) F43.10 Ac tive 47268595 Problem Hyperlipidemia E78.5 Active 02698096 ALLERGIES Allergen (clinical drug ingredient) Drug/Non Drug Allergy do cumented on EMR Reaction Allergy Type Onset Date Status sildenafil Sildenafil Citrate([facility] Code:[address]-70) Unknown Drug Allergy Active ENCOUNTERS from 1990 to 2020-04-06 Encounter Location Date Provider Diagnosis [address] [address] Mar, Perlita Bruceiveth PTSD (post-traumatic stress disorder) F4 3.10 ; Impaired fasting glucose R73.01 ; Major depressive disorder F32.9 ; Hyperlipidemia E78.5 ; Obstructive sleep apnea G47.33 ; Encounter for immunization Z23 ; Erectile dysfunction N52.9 and Encounter to establish care Z76.89 IMMUNIZATIONS Vaccine Route Administration Date Status Influenza (18 yrs & older) Flublok IM Intramuscular Apr 01, 2020 Administered SOCIAL HISTORY Tobacco Use: Social History Observation Description Date Details (start date - stop date) Never Smoker Sex Assigned At : Social History Observation Description Sex Assigned At Unknown Education: Question Answer Notes Level of Education: Finished High School Language: Question Answer Notes Languages spoken: Tanzanian Yazidi: Question Answer Notes Yazidi No church beliefs that would impact health care. Sexual [...] FOR REFERRAL No Information VITAL SIGNS Weight 258 lbs Mar, Height 73 in Mar, BMI 34.04 kg/m2 Mar, Heart Rate 74 /min Mar, Respiratory Rate 18 /min Mar, Temperature 98.2 degrees Fahrenheit Mar, Oximetry 99 Mar, Blood pressure systolic 114 mm Hg Mar, Blood pressure diastolic 84 mm Hg Mar, MEDICATIONS Medication SIG (Take, Route, Frequency, Duration) Notes Start Da te End Date Status Divalproex Sodium 500 MG 2 tablet Orally Daily Active Cetirizine HCl 10 MG 1 tablet Orally Once a day for 30 day(s) Active Cymbalta 60 MG 2 tablet po Once daily Active PROCEDURES from 1990 to 2020-04-06 Procedure Date Ordered Result Body Site Immunization: Flublok Quadrivalent (18 years & older) 0.5mL IM (Influenza) 2020-04-01 N/A RESULTS REASON FOR VISIT new patient MEDICAL (GENERAL) HISTORY Type Description Date Medical History Infertility Medical History ED Medical History HTN Medical History PTSD Medical History TBI Medical History vertigo Medical History depression Medical History anxiety Medical History ROXANNE- C-pap Surgical History vericocele Surgical History double hernia repair Surgical History cystoscopy 03/06/2019 Hospitalization History [facility] health [facility] then [place] 08/[facility] Goals Section No Information Health Concerns No Information MEDICAL EQUIPMENT No Information MENTAL STATUS No Information FUNCTIONAL STATUS No Information ASSESSMENTS Encounter Date Diagnosis Assessment Notes Treatment Notes Treatm ent Clinical Notes Mar, PTSD (post-traumatic stress disorder) (ICD-10 - F43.10) f/u [facility] Mar, Impaired fasting glucose (ICD-10 - R73.01) obtain labs Mar, Major depressive disorder (ICD-10 - F32.9) as per PTSD Mar, Hyperlipidemia (ICD-10 - E78.5) Obtain Labs Mar, Obstructive sleep apnea (ICD-10 - G47.33) continue C-Pap Referral to Pulmonology to titrate C-pap Mar, Encounter for immunization (ICD-10 - Z23) flu vaccine Mar, Erectile dysfunction (ICD-10 - N52.9) obtain labs Mar, Encounter to establish care (ICD-10 - Z76.89) establishing care PLAN OF TREATMENT Medication Medication Name Sig Start Date Stop Date Divalproex Sodium 500 MG 2 tablet Orally Daily Cymbalta 60 MG 2 tablet po Once daily Treatment Notes Assessment Notes Clinical Notes PTSD (post-traumatic stress disorder) f/ u [facility] Impaired fasting glucose obtain labs Major depressive disorder as per PTSD Hyperlipidemia Obtain Labs Obstructive sleep apnea continue C-PapRe ferral to Pulmonology to titrate C-pap Encounter for immunization flu vaccine Erectile dysfunction obtain labs Encounter to establish care establishing care Next Appt Details 4 Months f/u Reason: Provider Name:Perlita Rodney, 2020-0 07-28 09:30:00 AM, [address] [place], [address], Insurance Providers Payer Name Payer Address Payer Phone Insured Name Patient Relati onship to Insured Coverage Start Date Coverage End Date [facility] [address] [facility] [phone] NIDIA TINEO self
--- OUTSIDE RECORDS SUMMARY | 2020-05-20 18:33 | CCD | Continuity of Care Document ---
Author Author Gopal WILDE M.D. Organization Unknown Address [address] [place] [address] Phone [phone] Care Team Providers Care Marketing Analyst Name Role Phone Wai Whitehead PA-C AUTM [phone] Problems Active Problems Provider Date Dizziness and giddiness Candida Wilde M.D. Onset: 0 Migraine without aura, not refractory Candida Wilde M.D. On set: 10/03/2019 Chronic tension-type headache Candida Wilde M.D. Onset: 11/2019 Syncope and collapse Candida Wilde M.D. Onset: 10/03/2019 Vertigo of central origin Candida Wilde M.D. Onset: 020 Social History Type Date Description Comments Sex Unknown Tobacco Use Start: Unknown Patient has never smoked Allergies, Adverse Reactions, Alerts Description No Known Drug Allergies Medications Description No Information Available Immunizations Description No Information Available Vital Signs Date Vital Result Comment 10/03/2019 10:21am BP Systolic 140 mmHg BP Diastolic 100 mmHg Heart Rate 90 /min Respiratory Rate 14 /min Height 73 inches 6'1" Weight 260.00 lb BMI (Body Mass Index) 34.3 kg/m2 Flom Body Weight 184 lb Results Description No Information Available Procedures Date Code Description Status 11/27/2019 08503 Sympathetic Skin Responses Compl eted 11/27/2019 11664 Sympathetic Skin Responses Compl eted 11/27/2019 29851 Test Autonomic Nervous System, C ardiovagal Innervation Completed 11/27/2019 76662 Test Autonomic Nervous System, C ardiovagal Innervation Completed 10/23/2019 07540 EEG Recording Awake & Asleep Com pleted 10/23/2019 33562 EEG Recording Awake & Asleep Com pleted 10/09/2019 92513 Magnetic Resonance Angiography N hawa W/O Contrast Materials Completed 10/09/2019 45214 Magnetic Resonance Angiography N hawa W/O Contrast Materials Completed 10/09/2019 59445 Magnetic Resonance Angiogtaphy H ead W/O Contrast Material(S) Completed 10/09/2019 65149 Magnetic Resonance Angiogtaphy H ead W/O Contrast Material(S) Completed Medical Devices Description No Information Available Encounters Type Date Location Provider Dx Diagnosis Office Visit 02/27/2020 11:30a Main office - [place] Bernard Shah R55 Syncope and collapse R42 Dizziness and giddiness G43.009 Migraine w/o aura, not intra ctable, w/o status migrainosus G44.229 Chronic tension-type headach e, not intractable Office Visit 11/14/2019 2:45p Main office - [place] Bernard Shah R55 Syncope and collapse R42 Dizziness and giddiness G43.009 Migraine w/o aura, not intra ctable, w/o status migrainosus G44.229 Chronic tension-type headach e, not intractable Office Visit 10/03/2019 10:00a [place] R42 Dizziness and giddiness R42 Dizziness and giddiness G43.009 Migraine w/o aura, not intra ctable, w/o status migrainosus H81.4 Vertigo of central origin G44.229 Chronic tension-type headach e, not intractable G43.009 Migraine w/o aura, not intra ctable, w/o status migrainosus G44.229 Chronic tension-type headach e, not intractable R55 Syncope and collapse Assessments Date Code Description Provider 02/27/2020 R55 Syncope and collapse Candida Wilde M.D. 02/27/2020 R42 Dizziness and giddiness Candida golden M.D. 02/27/2020 G43.009 Migraine without aur a, not intractable, without status migrainosus Candida Wilde M.D. 02/27/2020 G44.229 Chronic tension-type headache, n ot intractable Candida Wilde M.D. 11/27/2019 I95.1 Orthostatic hypotension Candida golden M.D. 11/27/2019 I95.1 Orthostatic hypotension Ans/VS 11/27/2019 R55 Syncope and collapse Candida Wilde M.D. 11/27/2019 R55 Syncope and collapse Ans/VS 11/14/2019 R55 Syncope and collapse Candida Wilde M.D. 11/14/2019 R42 Dizziness and giddiness Candida golden M.D. 11/14/2019 G43.009 Migraine without aur a, not intractable, without status migrainosus Candida Wilde M.D. 11/14/2019 G44.229 Chronic tension-type headache, n ot intractable Candida Wilde M.D. 10/23/2019 S06.9x9A Unspecified intracra nial injury with loss of consciousness of unspecified duration, initial encounter Christelle Manzano M.D. 10/23/2019 S06.9x9A Unspecified intracra nial injury with loss of consciousness of unspecified duration, initial encounter EEG 10/09/2019 R55 Syncope and collapse Sandi Manzano M.D. 10/09/2019 R55 Syncope and collapse MRI 10/09/2019 H81.4 Vertigo of central origin Sandi Manzano M.D. 10/09/2019 H81.4 Vertigo of central origin MRI 10/09/2019 R42 Dizziness and giddiness Sandi Bearden M.D. 10/09/2019 R42 Dizziness and giddiness MRI 10/03/2019 R42 Dizziness and giddiness Candida golden M.D. 10/03/2019 R42 Dizziness and giddiness Candida golden M.D. 10/03/2019 G43.009 Migraine without aur a, not intractable, without status migrainosus Candida Wilde M.D. 10/03/2019 H81.4 Vertigo of central origin Candida Wilde M.D. 10/03/2019 G44.229 Chronic tension-type headache, n ot intractable Candida Wilde M.D. 10/03/2019 G43.009 Migraine without aur a, not intractable, without status migrainosus Canidda Wilde M.D. 10/03/2019 G44.229 Chronic tension-type headache, n ot intractable Candida Wilde M.D. 10/03/2019 R55 Syncope and collapse Candida Wilde M.D. Plan of Treatment No Information Available Functional Status Description No Information Available Mental Status Description No Information Available Referrals Description No Information Available
--- OUTSIDE RECORDS SUMMARY | 2020-05-20 18:33 | CCD ---
Author Author [facility] Organization [facility] Address Unknown Phone Unavailable Care Team Providers Care Regional Marketing Director Name Role Phone Karyna Lackey Unavailable PROBLEMS Type Condition ICD9-CM Code [id number] Code Onset Dates Condition S tatus W/U Status Risk SNOMED Code Notes Problem Obstructive sleep apnea G47.33 Active confirmed 47515873 Problem Obstructive sleep apnea (adult) (pediatric) G47.33 Active confirmed 37379256 Problem Major depressive disorder F32.9 Active confirmed 113626983 Problem Erectile dysfunction N52.9 Active confirmed 558228650 Problem PTSD (post-traumatic stress disorder) F43.10 Ac tive confirmed 86329180 Problem Hyperlipidemia E78.5 Active confirmed 96336 004 ALLERGIES Allergen (clinical drug ingredient) Drug/Non Drug Allergy do cumented on EMR Reaction Allergy Type Onset Date Status sildenafil Sildenafil Citrate([facility] Code:[address]-39) Unknown Drug Allergy Active ENCOUNTERS from 1989 to 2020-05-15 Encounter Location Date Provider Diagnosis [address] [address] Apr, Karyna Lackey Fatigue, unspecified type R53.83 ; Short ness of breath R06.02 ; Pneumonia of both lungs due to infectious organism, unspecified part of lung J18.9 and Dry mouth R68.2 IMMUNIZATIONS Vaccine Route Administration Date Status Influenza 18 yrs & older Flublok IM Intramuscular Apr 01, 2020 Administered SOCIAL HISTORY Tobacco Use: Social History Observation Description Date Details (start date - stop date) Never Smoker Sex Assigned At : Social History Observation Description Sex Assigned At Unknown Education: Question Answer Notes Level of Education: Finished High School Language: Question Answer Notes Languages spoken: Pashto Druze: Question Answer Notes Druze No jain beliefs that would impact health care. Sexual [...] FOR REFERRAL No Information VITAL SIGNS Weight 255 lbs Apr, Height 73 in Apr, BMI 33.64 kg/m2 Apr, Heart Rate 113 /min Apr, Respiratory Rate 18 /min Apr, Temperature 97.3 degrees Fahrenheit Apr, Oximetry 95 Apr, Blood pressure systolic 132 mm Hg Apr, Blood pressure diastolic 80 mm Hg Apr, MEDICATIONS Medication SIG (Take, [...] Orally Daily Active PROCEDURES No Information RESULTS Component Value Reference Range Urinalysis, no Micro Reviewed date:05/11/2020 10:04:22 Interpretation: Performing Lab:[facility] [place] [address] Spec gravity 1.020 1.002 - 1.035 pH 5 5.0 - 9.0 Leukocyte neg Negative - Nitrate neg Negative - Protein neg Negative - mg/dl Glucose neg Negative - mg/dl Ketones neg Negative - mg/dl Urobili neg Normal - mg/dl Bilirubin neg Negative - Blood neg Negative - Internal QC Acceptable (Y/N) yes Comprehensive Metabolic Profile (CMP) Reviewed date:05/11/2020 13:09:47 Interpretation: Performing Lab:[facility] LABORATORY [address] [facility] [address] [address] , ,[facility] GLUCOSE, FASTING 90 70-100 BLOOD UREA NITROGEN 22 7-18 CREATININE FOR GFR 0.76 0.70-1.30 GLOMERULAR FILTRATION RATE > 60.0 >60 SODIUM LEVEL 143 136-145 POTASSIUM SERUM 5.3 3.5-5.1 CHLORIDE LEVEL 107 98-107 CARBON DIOXIDE LEVEL 30 21-32 CALCIUM LEVEL 9.4 8.5-10.1 AST/SGOT 14 7-37 ALT/SGPT 34 12-78 ALKALINE PHOSPHATASE 89 45-117 BILIRUBIN,TOTAL 0.4 0.2-1.0 TOTAL PROTEIN 6.9 6.4-8.2 ALBUMIN 3.8 3.2-5.2 ALBUMIN/GLOBULIN RATIO 1.2 C REACTIVE PROTEIN QUANTITATIV (At [facility]) Reviewed date:05/11/2020 13:09:56 Interpretation: Performing Lab:[facility] LABORATORY [address] [place] [address] , ,[facility] C REACTIVE PROTEIN QUANTITATIV 0.36 0.00-0.30 ERYTHROCYTE SEDIMENTATION RATE Reviewed date:05/11/2020 13:09:41 Interpretation: Performing Lab:[facility] LABORAT[facility] [address] [place] [address] , ,[place] [address] ERYTHROCYTE SEDIMENTATION RATE 23 0-15 DDIMER QUANT Reviewed date:05/11/2020 13:09:52 Interpretation: Performing Lab:[facility] LABORATORY [address] [place] [address] , ,[facility] D-DIMER QUANT 321.88 <500 LACTIC ACID LEVEL, LACTATE Reviewed date:05/11/2020 13:10:01 Interpretation: Performing Lab:[facility] LAB[facility] [address] [place] [address] , ,[place] [address] CBC with Auto Differential Reviewed date:05/12/2020 13:58:58 Interpretation: Performing Lab:[facility] [address] [facility] [address] [id number] , ,[place] [address] WHITE BLOOD COUNT 6.3 4.0-10.0 RED BLOOD COUNT 4.80 4.30-6.10 HEMOGLOBIN 14.5 13.5-17.5 HEMATOCRIT 42.9 42.0-52.0 MEAN CORPUSCULAR VOLUME 89.4 80.0-96.0 MEAN CORPUSCULAR HEMOGLOBIN 30.2 27.0-33.0 MEAN CORPUSCULAR HGB CONC 33.8 32.0-36.5 RED CELL DISTRIBUTION WIDTH 12.0 11.5-14.5 PLATELET COUNT, AUTOMATED 307 150-450 NEUTROPHILS % 58.8 36.0-66.0 LYMPH % 24.5 24.0-44.0 MONO % 9.5 2.0-8.0 EOS % 3.2 0.0-3.0 BASO % 1.0 0.0-1.0 IMMATURE GRANULOCYTE % 3.0 0-3.0 NUCLEATED RED BLOOD CELL % 0.0 0-0 NEUTROPHILS # 3.7 1.5-8.5 LYMPH # 1.5 1.5-5.0 MONO # 0.6 0.0-0.8 EOS # 0.2 0.0-0.5 BASO # 0.1 0.0-0.2 REASON FOR VISIT Monday with Luis; recheck pneumonia MEDICAL (GENERAL) HISTORY Type Description Date Medical History Infertility Medical History ED Medical History HTN Medical History PTSD Medical History TBI Medical History vertigo Medical History depression Medical History anxiety Medical History ROXANNE- C-pap Surgical History varicocele Surgical History double hernia repair Surgical History cystoscopy 03/06/2019 Hospitalization History mental health --[facility] then [place] 08/2019 Goals Section No Information Health Concerns No Information MEDICAL EQUIPMENT No Information MENTAL STATUS No Information FUNCTIONAL STATUS No Information ASSESSMENTS Encounter Date Diagnosis Assessment Notes Treatment Notes Treatm ent Clinical Notes Apr, Fatigue, unspecified type (ICD-10 - R53.83) Will order labs today; call pt with results. All sxs likely post-covid Apr, Shortness of breath (ICD-10 - R06.02) Apr, Pneumonia of both lungs due to infectious organism, unspecified part of lung (ICD-10 - J18.9) Apr, Dry mouth (ICD-10 - R68.2) Apr, Other Total time rodger ng for the patient on the day of the encounter was 20 min PLAN OF TREATMENT Treatment Notes Assessment Notes Clinical Notes Fatigue, unspecified type Will order labs today; call pt with results. All sxs likely post-covid Next Appt Details Provider Name:Perlita Brockdiego, 07-28 09:30:00 AM, [address] [place], [address], Insurance Providers Payer Name Payer Address Payer Phone Insured Name Patient Relati onship to Insured Coverage Start Date Coverage End Date [facility] [address] [facility] [address] NIDIA TINEO self
--- OUTSIDE RECORDS SUMMARY | 2020-05-20 18:33 | CCD ---
Author Author [facility] Organization [facility] Address Unknown Phone Unavailable Care Team Providers Care Purchasing Supervisor Name Role Phone Karyna Lackey Unavailable PROBLEMS Type Condition ICD9-CM Code [id number] Code Onset Dates Condition S tatus W/U Status Risk SNOMED Code Notes Problem Obstructive sleep apnea G47.33 Active confirmed 17666028 Problem Obstructive sleep apnea (adult) (pediatric) G47.33 Active confirmed 09919653 Problem Major depressive disorder F32.9 Active confirmed 790434380 Problem Erectile dysfunction N52.9 Active confirmed 555123131 Problem PTSD (post-traumatic stress disorder) F43.10 Ac tive confirmed 35370670 Problem Hyperlipidemia E78.5 Active confirmed 53252 004 ALLERGIES Allergen (clinical drug ingredient) Drug/Non Drug Allergy do cumented on EMR Reaction Allergy Type Onset Date Status sildenafil Sildenafil Citrate([facility] Code:[address]-68) Unknown Drug Allergy Active ENCOUNTERS from 1989 to 2020-05-11 Encounter Location Date Provider Diagnosis [address] [address] Apr, Karyna Lackey Fever, unspecified fever cause R50.9 ; P neumonia of left upper lobe due to infectious organism J18.9 and History of COVID-19 Z86.16 IMMUNIZATIONS Vaccine Route Administration Date Status Influenza (18 yrs & older) Flublok IM Intramuscular Apr 01, 2020 Administered SOCIAL HISTORY Tobacco Use: Social History Observation Description Date Details (start date - stop date) Never Smoker Sex Assigned At : Social History Observation Description Sex Assigned At Unknown Education: Question Answer Notes Level of Education: Finished High School Language: Question Answer Notes Languages spoken: Faroese Episcopal: Question Answer Notes Episcopal No christianity beliefs that would impact health care. Sexual [...] Apr, BMI 33.64 kg/m2 Apr, Heart Rate 102 /min Apr, Respiratory Rate 18 /min Apr, Temperature 96.8 degrees Fahrenheit Apr, Oximetry 97 Apr, Blood pressure systolic 138 mm Hg Apr, Blood pressure diastolic 80 [...] No Information RESULTS Component Value Reference Range PLZ CHEST 2 VIEW Reviewed date:05/07/2020 09:08:50 Interpretation: Performing Lab:[facility],[address] ,[place] [address] REASON FOR VISIT sob/temp/Off isolation 05/05/20covid f/u MEDICAL (GENERAL) HISTORY Type Description Date Medical History Infertility Medical History ED Medical History HTN Medical History PTSD Medical History TBI Medical History vertigo Medical History depression Medical History anxiety Medical History ROXANNE- C-pap Surgical History varicocele Surgical History double hernia repair Surgical History cystoscopy 03/06/2019 Hospitalization History mental health --[facility] then [place] 08/2019 Goals Section No Information Health Concerns No Information MEDICAL EQUIPMENT No Information MENTAL STATUS No Information FUNCTIONAL STATUS No Information ASSESSMENTS Encounter Date Diagnosis Assessment Notes Treatment Notes Treatm ent Clinical Notes Apr, Fever, unspecified fever cause (ICD-10 - R50.9) D/C Doxy, start Levaquin. If any worsening in breathing, pt to go to the ED, otherwise, will recheck here in 2 days Apr, Pneumonia of left upper lobe due to infectious organism (ICD-10 - J18.9) Apr, History of COVID-19 (ICD-10 - Z86.16) Apr, Other Total time amy g for the patient on the day of the encounter was 25 min PLAN OF TREATMENT Treatment Notes Assessment Notes Clinical Notes Fever, unspecified fever cause D/C Doxy, start Levaqui n. If any worsening in breathing, pt to go to the ED, otherwise, will recheck here in 2 days Next Appt Details Provider Name:Perlita Brockdiego, 07-28 09:30:00 AM, [address] [place], [address], Insurance Providers Payer Name Payer Address Payer Phone Insured Name Patient Relati onship to Insured Coverage Start Date Coverage End Date [facility] [address] [facility] [id number] NIDIA TINEO self
--- OUTSIDE RECORDS SUMMARY | 2020-05-20 18:33 | CCD ---
Author Author [facility] Organization [facility] Address Unknown Phone Unavailable Care Team Providers Care Silk Screen Operator Name Role Phone Myers, T Pawel PA Unavailable Unavailable Myers, T Pawel PA Unavailable Unavailable Myers, T Pawel PA Unavailable Unavailable Myers, T Pawel PA Unavailable Unavailable Myers, T Paewl PA Unavailable Unavailable Myers, T Pawel PA Unavailable Unavailable Myers, T Pawel PA Unavailable Unavailable Myers, T Pawel PA Unavailable Unavailable Myers, T Pawel PA Unavailable Unavailable Myers, T Pawel PA Unavailable Unavailable Myers, T Pawel PA Unavailable Unavailable Myers, T Pawel PA Unavailable Unavailable Myers, T Pawel PA Unavailable Unavailable Myers, T Pawel PA Unavailable Unavailable Myers, T Pawel PA Unavailable Unavailable Myers, T Pawel PA Unavailable Unavailable Myers, T Pawel PA Unavailable Unavailable Myers, T Pawel PA Unavailable Unavailable Myers, T Pawel PA Unavailable Unavailable Myers, T Pawel PA Unavailable Unavailable Myers, T Pawel PA Unavailable Unavailable Myers, T Pawel PA Unavailable Unavailable Myers, T Pawel PA Unavailable Unavailable Myers, T Pawel PA Unavailable Unavailable Myers, T Pawel PA Unavailable Unavailable Myers, T Pawel PA Unavailable Unavailable Myers, T Pawel PA Unavailable Unavailable Myers, T Pawel PA Unavailable Unavailable Myers, T Pawel PA Unavailable Unavailable Myers, T Pawel PA Unavailable Unavailable Myers, T Pawel PA Unavailable Unavailable Myers, T Pawel PA Unavailable Unavailable Myers, T Pawel PA Unavailable Unavailable Myers, T Pawel PA Unavailable Unavailable Myers, T Pawel PA Unavailable Unavailable Myers, T Pawel PA Unavailable Unavailable Myers, T Pawel PA Unavailable Unavailable Myers, T Pawel PA Unavailable Unavailable Myers, T Pawel PA Unavailable Unavailable Myers, T Pawel PA Unavailable Unavailable Myers, T Pawel PA Unavailable Unavailable Myers, T Pawel PA Unavailable Unavailable Myers, T Pawel PA Unavailable Unavailable [facility], JLAM Unavailable Unavailable [facility], MJAIN Unavailable Unavailable Candida Wilde MD Unavailable Unavailable Candida Wilde MD Unavailable Unavailable Candida Wilde MD Unavailable Unavailable Candida Wilde MD Unavailable Unavailable Candida Wilde MD Unavailable Unavailable AliCandida MD Unavailable Unavailable AliCandida MD Unavailable Unavailable AliCandida MD Unavailable Unavailable AliCandida MD Unavailable Unavailable AliCandida MD Unavailable Unavailable Candida Wilde MD Unavailable Unavailable AliCandida MD Unavailable Unavailable AliCandida MD Unavailable Unavailable AliCandida MD Unavailable Unavailable AliCandida MD Unavailable Unavailable AliCandida MD Unavailable Unavailable AliCandida MD Unavailable Unavailable Candida Wilde MD Unavailable Unavailable Candida Wilde MD Unavailable Unavailable Candida Wilde MD Unavailable Unavailable Candida Wilde MD Unavailable Unavailable Candida Wilde MD Unavailable Unavailable Candida Wilde MD Unavailable Unavailable AliCandida MD Unavailable Unavailable AliCandida MD Unavailable Unavailable AliCandida MD Unavailable Unavailable AliCandida MD Unavailable Unavailable AliCandida MD Unavailable Unavailable AliCandida MD Unavailable Unavailable AliCandida MD Unavailable Unavailable AliCandida MD Unavailable Unavailable Candida Wilde MD Unavailable Unavailable Candida Wilde MD Unavailable Unavailable Candida Wilde MD Unavailable Unavailable Candida Wilde MD Unavailable Unavailable Candida Wilde MD Unavailable Unavailable Candida Wilde MD Unavailable Unavailable Candida Wilde MD Unavailable Unavailable Candida Wilde MD Unavailable Unavailable Candida Wilde MD Unavailable Unavailable Candida Wilde MD Unavailable Unavailable Candida Wilde MD Unavailable Unavailable Candida Wilde MD Unavailable Unavailable AliCandida MD Unavailable Unavailable Ali, Candida MD Unavailable Unavailable Ali, Candida MD Unavailable Unavailable Ali, Candida MD Unavailable Unavailable Ali, Candida MD Unavailable Unavailable Ali, Candida MD Unavailable Unavailable Maring, Leland PA Unavailable Unavailable Maring, Leland PA Unavailable Unavailable Maring, Leland PA Unavailable Unavailable Maring, Leland PA Unavailable Unavailable Maring, Leland PA Unavailable Unavailable Maring, Leland PA Unavailable Unavailable Maring, Leland PA Unavailable Unavailable Maring, Leland PA Unavailable Unavailable Maring, Leland PA Unavailable Unavailable Maring, Leland PA Unavailable Unavailable Maring, Leland PA Unavailable Unavailable Maring, Leland PA Unavailable Unavailable Maring, Leland PA Unavailable Unavailable Maring, Leland PA Unavailable Unavailable Re-disclosure Warning The records that you are about to access may contain information from federally-assisted alcohol or drug abuse programs. If such information is present, then the following federally mandated warning applies: This information has been disclosed to you from records protected by federal confidentiality rules (42 CFR part 2). The federal rules prohibit you from making any further disclosure of this information unless further disclosure is expressly permitted by the written consent of the person to whom it pertains or as otherwise permitted by 42 CFR part 2. A general authorization for the release of medical or other information is NOT sufficient for this purpose. The Federal rules restrict any use of the information to criminally investigate or prosecute any alcohol or drug abuse patient.The records that you are about to access may contain highly sensitive health information, the redisclosure of which is protected by Article 27-F of the [facility] Public Health law. If you continue you may have access to information: Regarding HIV / AIDS; Provided by facilities licensed or operated by the [facility] Office of Mental Health; or Provided by the [facility] Office for People With Developmental Disabilities. If such information is present, then the following [facility] mandated warning applies: This information has been disclosed to you from confidential records which are protected by state law. State law prohibits you from making any further disclosure of this information without the specific written consent of the person to whom it pertains, or as otherwise permitted by law. Any unauthorized further disclosure in violation of state law may result in a fine or alf sentence or both. A general authorization for the release of medical or other information is NOT sufficient authorization for further disc losure. Family History Family Member Name Family Member Gender Family Member Status Date o f Status Description Data Source(s) Unknown Unknown Problem MEDENT ([facility] Unknown Male Problem MEDENT ([facility]) Encounters Encounter Providers Location Date Indications Data Source(s ) [place] [address] [facility] [address] 05/11/2020 12:00:00 AM EST [facility]CW1 [facility] [place] [address] [facility] [address] 05/08/2020 12:00:00 AM EST [facility]CW1 [facility]) [place] [address] [facility] [address] 05/06/2020 12:00:00 AM EST eCW1 ([facility]) [place] [address] [facility] [address] 05/06/2020 12:00:00 AM EST eCW1 ([facility]) Outpatient Attender: Leland SHABAZZ 04/26/19 12:57:38 PM EST - 04/26/2020 01:44:15 PM EST [facility] ([facility] ) [place] [address] [facility] [address] 04/01/2020 12:00:00 AM EST [facility] Outpatient Attender: Candida Wilde MD Main office - [place] 02/27/2020 10:30:00 AM EST MEDENT ([facility]) Outpatient [facility]: [facility] 01/31/2020 07:48:01 AM [facility] Outpatient Attender: [facility] 01/31/2020 07:47:01 AM [facility] Outpatient Attender: [facility] 01/29/2020 03:05:01 PM [facility] Outpatient Attender: [facility] 01/29/2020 03:01:01 PM [facility] Outpatient Attender: [facility] 01/29/2020 02:59:01 PM [facility] Outpatient Attender: [facility] 01/29/2020 12:42:01 PM [facility] Outpatient Att[facility]: [facility] 01/29/2020 12:41:01 PM EST [facility] Outpatient Attender: [facility] 01/29/2020 12:19:00 PM EST [facility] Outpatient Attender: Candida Wilde MD Main office - [place] 11/14/2019 02:45:00 PM EDT MEDENT ([facility]) Outpatient Attender: Candida Wilde MD Main office - [place] 10/03/2019 10:00:00 AM EDT MED[facility] ([facility]) Outpatient Attender: [facility] 09/03/2019 08:00:15 PM EDT [facility] Outpatient Referrer: Pawel SHABAZZ 04/22/2019 12:42:00 PM EST [facility] Immunizations Vaccine Date Status Description Data Source(s) influenza, recombinant, quadrIvalent,injectable, prese rvative free 04/01/2020 09:30:00 AM EST completed eCW1 ([facility]) influenza, recombinant, quadrIvalent,injectable, prese rvative free 04/01/2020 09:30:00 AM EST completed eCW1 ([facility]) influenza, recombinant, quadrIvalent,injectable, prese rvative free 04/01/2020 09:30:00 AM EST completed eCW1 ([facility]) influenza, recombinant, quadrIvalent,injectable, prese rvative free 04/01/2020 09:30:00 AM EST completed eCW1 ([facility]) influenza, recombinant, quadrIvalent,injectable, prese rvative free 04/01/2020 09:30:00 AM EST completed eCW1 ([facility]) Medications Medication Brand Name Start Date Product Form Dose Route Admi nistrative Instructions Pharmacy Instructions Status Indications Reaction Description Data Source(s) 90 mcg/actuation 05/08/2020 12:00:00 AM EST HFA aerosol inha ler 8 INHALE TWO PUFFS BY MOUTH EVERY 4 TO 6 HOURS NEEDED FOR 10 DAYS INHALE TWO PUFFS BY MOUTH EVERY 4 TO 6 HOURS NEEDED FOR 10 DAYS SOLD: 05/08/2020 [facility] 200 ACTUAT Albuterol 0.09 MG/ACTUAT Mete red Dose Inhaler [ProAir] ProAir HFA 108 (90 Base) MCG/ACT ProAir HFA 108 (90 Base) MCG/ACT 05/08/2020 12:00:00 AM EST 2.0 {puffs_as_needed} active Pr oAir HFA 108 (90 Base) MCG/ACT eCW1 ([facility]) 200 ACTUAT Albuterol 0.09 MG/ACTUAT Mete red Dose Inhaler [ProAir] ProAir HFA 108 (90 Base) MCG/ACT ProAir HFA 108 (90 Base) MCG/ACT 05/08/2020 12:00:00 AM EST 2.0 {puffs_as_needed} active Pr oAir HFA 108 (90 Base) MCG/ACT eCW1 ([facility]) 200 ACTUAT Albuterol 0.09 MG/ACTUAT Mete red Dose Inhaler [ProAir] ProAir HFA 108 (90 Base) MCG/ACT ProAir HFA 108 (90 Base) MCG/ACT 05/08/2020 12:00:00 AM EST 2.0 {puffs_as_needed} active Pr oAir HFA 108 (90 Base) MCG/ACT eCW1 ([facility]) Levaquin 750 MG UNK 05/06/2020 12:00:00 AM EST 1.0 {tablet} active Levaquin 750 MG eCW1 ([facility]) Levaquin 750 MG UNK 05/06/2020 12:00:00 AM EST 1.0 {tablet} suspended Levaquin 750 MG eCW1 ([facility]) Levaquin 750 MG UNK 05/06/2020 12:00:00 AM EST 1.0 {tablet} suspended Levaquin 750 MG eCW1 ([facility]) 750 mg 05/06/2020 12:00:00 AM EST tablet 5 TAKE ONE TABLET BY MOUTH EVERY DAY FOR 5 DAYS TAKE ONE TABLET BY MOUTH EVERY DAY FOR 5 DAYS SOLD: 05/06/2020 [facility] Levaquin 750 MG UNK 05/06/2020 12:00:00 AM EST 1.0 {tablet} suspended Levaquin 750 MG eCW1 ([facility]) 100 mg 05/03/2020 12:00:00 AM EST capsule 20 TAKE ONE CAPSULE BY MOUTH EVERY 12 HOURS TAKE ONE CAPSULE BY MOUTH EVERY 12 HOURS SOLD: 05/04/2020 [facility] Cephalexin 500 MG Oral Capsule CEPHALEXIN 12/02/2019 12:00:00 AM EDT capsule 20 TAKE ONE CAPSULE BY MOUTH EVERY 12 HOURS TAKE ONE CAPS ULE BY MOUTH EVERY 12 HOURS SOLD: 12/03/2019 [facility] 10 mg 12/02/2019 12:00:00 AM EDT tablet 24 TAKE 4 TABLETS BY MOUTH ONCE DAILY FOR 3 DAYS;3/DAY X 2 DAYS;2/DAY X 2 DAYS;1/DAY X 2 DAYS TAKE 4 TABLETS BY MOUTH ONCE DAILY FOR 3 DAYS;3/DAY X 2 DAYS;2/DAY X 2 DAYS;1/DAY X 2 DAYS SOLD: 12/03/2019 [facility] 500 mg 03/06/2019 12:00:00 AM EST tablet 60 TAKE ONE TABLET BY MOUTH EVERY 12 HOURS TAKE ONE TABLET BY MOUTH EVERY 12 HOURS SOLD: 03/23/2019 [facility] Insurance Providers Payer name Policy type / Coverage type Policy ID Covered green party ID Covered green party's relationship to st Policy St Plan Information [facility] COMMUNITY PLAN [facility] [id number] SP [id number] HARRISON [employer](MCAID) O [id number] S [id number] [facility] COMMUNITY PLAN [facility] [id number] SP [id number] [facility] Optum VA Plan/ [id number] Self [id number] Managed Care - [facility] Community Plan P [id number] S [id number] Medicaid S [id number] S [id number] Self Pay P UNAVAILABLE S UNAVAILA BLE [facility] COMMUNITY PLAN MCDO [id number] SP [id number] [facility] [id number] Self [id number] [facility] COMMUNITY PLAN [facility] [id number] SP [id number] [facility] Community Plan Commercial [id number] Self [id number] [facility] PLAN [facility] [id number] SP [id number] [facility] Community Plan Commercial [id number] Self [id number] HARRISON [employer](MCAID) O [id number] S [id number] [facility] Hmo Commercial [id number] Self [id number] [employer] Hmo Commercial [id number] Self [id number] [employer] Commercial [id number] Self [id number] [facility] Commercial Self SELF PAY UNAVAILABLE UNAVAILA BLE 'S ADMINISTRATION [id number] SP [id number] MEDICAID [id number] SP [id number] [employer] PLAN [id number] SP [id number] [facility] [id number] SP [id number] Problems, Conditions, and Diagnoses Code Display Name Description Problem Type Effective Dates Data Source(s) E78.5 Hyperlipidemia Hyperlipidemia Problem 04/01/2020 12:00: 00 AM EST eCW1 ([facility]) F43.10 [id number] PTSD (post-traumatic stress disorder) Pro blem 04/01/2020 12:00:00 AM EST eCW1 ([facility]) N52.9 Erectile dysfunction Erectile dysfunction Problem 04/01/2020 12:00:00 AM EST eCW1 ([facility]) F32.9 Major depressive disorder Major depressive disorder Pr oblem 04/01/2020 12:00:00 AM EST eCW1 ([facility]) G47.33 [id number] Obstructive sleep apnea (adult) (pediatri c) Problem 04/01/2020 12:00:00 AM EST eCW1 ([facility]) G47.33 Obstructive sleep apnea Obstructive sleep apnea Proble m 04/01/2020 12:00:00 AM EST eCW1 ([facility]) [id number] Vertigo of central origin Vertigo of central origin Pr oblem 10/03/2019 12:00:00 AM EDT MEDENT ([facility]) [id number] Syncope and collapse Syncope and collapse Problem 10/03/2019 12:00:00 AM EDT MEDENT ([facility]) [id number] Chronic tension-type headache Chronic tension-type hea dache Problem 10/03/2019 12:00:00 AM EDT MEDENT ([facility]) [id number] Migraine without aura, not refractory Mi graine without aura, not refractory Problem 10/03/2019 12:00:00 AM EDT MEDENT ([facility]) [id number] Dizziness and giddiness Dizziness and giddiness Proble m 10/03/2019 12:00:00 AM EDT MEDENT ([facility] ) Surgeries/Procedures Procedure Description Date Indications Data Source(s) Immunization: Flublok Quadrivalent (18 years & older) 0.5mL IM (Influenza) 04/01/2020 12:00:00 AM EST eCW1 ([facility]) TSTG ANS FUNCJ CARDIOVAGAL INNERVAJ PARASYMP 0 12:00:00 AM EDT MEDENT ([facility] ) TSTG ANS FUNCJ CARDIOVAGAL INNERVAJ PARASYMP 0 12:00:00 AM EDT MED[facility] ([facility] TESTING AUTONOMIC NERVOUS SYSTEM FUNCTION 11/27/2019 1 2:00:00 AM EDT MEDENT ([facility] TESTING AUTONOMIC NERVOUS SYSTEM FUNCTION 11/27/2019 1 2:00:00 AM EDT MEDENT ([facility] ELECTROENCEPHALOGRAM W/REC AWAKE&ASLEEP 10/23/2019 12: 00:00 AM EDT MEDENT ([facility] ELECTROENCEPHALOGRAM W/REC AWAKE&ASLEEP 10/23/2019 12: 00:00 AM EDT MEDENT ([facility] Magnetic Resonance Angiogtaphy Head W/O Contrast Material(S) 10/09/2019 12:00:00 AM EDT MEDENT ([facility] Magnetic Resonance Angiogtaphy Head W/O Contrast Material(S) 10/09/2019 12:00:00 AM EDT MEDENT ([facility]) Magnetic Resonance Angiography Neck W/O Contrast Materials 10/09/2019 12:00:00 AM EDT MEDENT ([facility]) Magnetic Resonance Angiography Neck W/O Contrast Materials 10/09/2019 12:00:00 AM EDT MEDENT ([facility]) Results ID Date Data Source CBC with Auto Differential 05/11/2020 12:00:00 AM EST eCW1 ( [facility]) Name Value Range Interpretation Code Description Data Tamela rce(s) Supporting Document(s) 6.3 4.0-10.0 WHITE BLOOD COUNT eCW1 ([facility]) 14.5 13.5-17.5 HEMOGLOBIN eCW1 ([facility]) 4.80 4.30-6.10 RED BLOOD COUNT eCW1 ([facility]) 89.4 80.0-96.0 MEAN CORPUSCULAR VOLUME e CW1 ([facility]) 33.8 32.0-36.5 MEAN CORPUSCULAR HGB CONC eCW1 ([facility]) 42.9 42.0-52.0 HEMATOCRIT eCW1 ([facility]) 30.2 27.0-33.0 MEAN CORPUSCULAR HEMOGLOB IN eCW1 ([facility]) 307 150-450 PLATELET COUNT, AUTOMATED eCW1 ([facility]) 24.5 24.0-44.0 LYMPH % eCW1 ([facility]) 12.0 11.5-14.5 RED CELL DISTRIBUTION WID TH eCW1 ([facility]) 58.8 36.0-66.0 NEUTROPHILS % eCW1 ([facility]) 1.0 0.0-1.0 BASO % eCW1 ([facility]) 3.2 0.0-3.0 EOS % eCW1 ([facility]) 9.5 2.0-8.0 MONO % eCW1 ([facility]) 3.0 0-3.0 IMMATURE GRANULOCYTE % eCW1 ([facility]) 3.7 1.5-8.5 NEUTROPHILS # eCW1 ([facility]) 0.0 0-0 NUCLEATED RED BLOOD CELL % eCW 1 ([facility]) 1.5 1.5-5.0 LYMPH # eCW1 ([facility]) 0.6 0.0-0.8 MONO # eCW1 ([facility]) 0.1 0.0-0.2 BASO # eCW1 ([facility]) 0.2 0.0-0.5 EOS # eCW1 ([facility]) ID Date Data Source LACTIC ACID LEVEL, LACTATE 05/11/2020 12:00:00 AM EST eCW1 ( [facility]) Name Value Range Interpretation Code Description Data Tamela rce(s) Supporting Document(s) LACTIC ACID LEVEL, LACTATE eCW 1 ([facility]) ID Date Data Source DDIMER QUANT 05/11/2020 12:00:00 AM EST eCW1 ([facility]) Name Value Range Interpretation Code Description Data Tamela rce(s) Supporting Document(s) 321.88 <500 D-DIMER QUANT eCW1 ([facility]) ID Date Data Source ERYTHROCYTE SEDIMENTATION RATE 05/11/2020 12:00:00 AM EST eC W1 ([facility]) Name Value Range Interpretation Code Description Data Tamela rce(s) Supporting Document(s) 23 0-15 ERYTHROCYTE SEDIMENTATION RATE eCW1 ([facility]) ID Date Data Source C REACTIVE PROTEIN QUANTITATIV (At [facility]) 05/11/2020 12:00 :00 AM EST eCW1 ([facility]) Name Value Range Interpretation Code Description Data Tamela rce(s) Supporting Document(s) 0.36 0.00-0.30 C REACTIVE PROTEIN QUANTI TATIV eCW1 ([facility]) ID Date Data Source Comprehensive Metabolic Profile (CMP) 05/11/2020 12:00:00 AM EST eCW1 ([facility]) Name Value Range Interpretation Code Description Data Tamela rce(s) Supporting Document(s) 22 7-18 BLOOD UREA NITROGEN eCW1 ([facility]) 90 70-100 GLUCOSE, FASTING eCW1 ([facility]) 0.76 0.70-1.30 CREATININE FOR GFR eCW1 ([facility]) 143 136-145 SODIUM LEVEL eCW1 ([facility]) > 60.0 >60 GLOMERULAR FILTRATION RATE eCW 1 ([facility]) 30 21-32 CARBON DIOXIDE LEVEL eCW1 ([facility]) 5.3 3.5-5.1 POTASSIUM SERUM eCW1 ([facility]) 9.4 8.5-10.1 CALCIUM LEVEL eCW1 ([facility]) 107 98-107 CHLORIDE LEVEL eCW1 ([facility]) 89 45-117 ALKALINE PHOSPHATASE eCW1 ([facility]) 34 12-78 ALT/SGPT eCW1 ([facility]) 14 7-37 AST/SGOT eCW1 ([facility]) 0.4 0.2-1.0 BILIRUBIN,TOTAL eCW1 ([facility]) 3.8 3.2-5.2 ALBUMIN eCW1 ([facility]) 1.2 ALBUMIN/GLOBULIN RATIO eCW1 ([facility]) 6.9 6.4-8.2 TOTAL PROTEIN eCW1 ([facility]) ID Date Data Source PLZ CHEST 2 VIEW 05/06/2020 12:00:00 AM EST eCW1 ([facility]) Name Value Range Interpretation Code Description Data Tamela rce(s) Supporting Document(s) PLZ CHEST 2 VIEW eCW1 ([facility]) ID Date Data Source [id number] 04/26/2020 12:00:00 AM EST [facility] Name Value Range Interpretation Code Description Data Tamela rce(s) Supporting Document(s) Carestart Rapid COVID Antigen Test Positive [facility] This lab was reported by Holly duggan. ID Date Data Source TESTOSTERONE FREE & TOTAL 04/01/2020 12:00:00 AM EST eCW1 ([facility]) Name Value Range Interpretation Code Description Data Tamela rce(s) Supporting Document(s) 12.0 8.7-25.1 eCW1 ([facility]) 217.0 264-916 eCW1 ([facility]) ID Date Data Source LIPID PANEL (CARDIAC RISK) 04/01/2020 12:00:00 AM EST eCW1 ( [facility]) Name Value Range Interpretation Code Description Data Tamela rce(s) Supporting Document(s) Triglyceride [Mass/volume] in Serum or Plasma by calculation 142 <150 eCW1 ([facility]) Cholesterol [Moles/volume] in Serum or Plasma 233 <200 eCW1 ([facility]) 4.396 <5 eCW1 ([facility]) Cholesterol in LDL [Mass/volume] in Serum or Plasma by calculation 15 2 <100 eCW1 ([facility]) Cholesterol in HDL [Moles/volume] in Serum or Plasma 53 >40 eCW1 ([facility]) 180 eCW1 ([facility]) ID Date Data Source FREE T4 & TSH PANEL 04/01/2020 12:00:00 AM EST eCW1 ([facility]) Name Value Range Interpretation Code Description Data Tamela rce(s) Supporting Document(s) 1.360 0.358-3.740 eCW1 ([facility]) 0.93 0.76-1.46 eCW1 ([facility]) ID Date Data Source [id number] 04/01/2020 12:00:00 AM EST eCW1 ([facility]) Name Value Range Interpretation Code Description Data Tamela rce(s) Supporting Document(s) Hemoglobin A1c/Hemoglobin.total in Blood 5.3 eCW1 ([facility]) ID Date Data Source CBC with Differential 04/01/2020 12:00:00 AM EST eCW1 ([facility]) Name Value Range Interpretation Code Description Data Tamela rce(s) Supporting Document(s) 6.7 4.0-10.0 eCW1 ([facility]) 5.09 4.30-6.10 eCW1 ([facility]) 45.6 42.0-52.0 eCW1 ([facility]) 30.5 27.0-33.0 eCW1 ([facility]) 89.6 80.0-96.0 eCW1 ([facility]) 15.5 13.5-17.5 eCW1 ([facility]) 34.0 32.0-36.5 eCW1 ([facility]) 12.0 11.5-14.5 eCW1 ([facility]) 27.7 24.0-44.0 eCW1 ([facility]) 57.5 36.0-66.0 eCW1 ([facility]) 255 150-450 eCW1 ([facility]) 5.5 0.0-3.0 eCW1 ([facility]) 1.0 0.0-1.0 eCW1 ([facility]) 3.8 1.5-8.5 eCW1 ([facility]) 1.9 1.5-5.0 eCW1 ([facility] [facility]) 8.2 0.0-5.0 eCW1 (Formerly [facility]) 0.1 0.0-0.2 eCW1 (Formerly [facility]) 0.6 0.0-0.8 eCW1 (Formerly [facility]) 0.4 0.0-0.5 eCW1 (Formerly [facility]) ID Date Data Source [id number] 01/29/2020 12:40:32 PM [facility] Vital SignsBlood Pressure: 128/88 Patient History Medical History:Fainting Spells Brain TBISurgical History:Double herina repair as . Varacacyle RepairFamily History:Unknown Social/Personal History: Smoking Status: never smokerChief Complaint: Routine CleaningVisit Type: ExamProblem list reviewed during this update.No known problems.Current Medications: * DIVALPROEX * CYMBALTA Medication list reviewed during this update.Allergy list reviewed during this update.No known allergies.Past Medical History:(reviewed - no changes required) Fainting Spells Brain TBI Dental Chart: Procedures:Type - CDT Code - Description B - (D0150) Comprehensive oral evaluation - new or established patient (Performed by Jeff Moreno DDS) B - (D0210) Intraoral, complete series of radiographic images (Performed by Leslee Fang RDH) B - (D1110) Prophylaxis, adult (Performed by Leslee Fang RDH) Treatments:Type - CDT Code - Description T - (D2392) Resin-based composite, 2 surfaces, posterior on Tooth # 13 on Tooth Surface DO (Performed by [facility]) T - (D2391) Resin-based composite - one surface, posterior on Tooth # 3 on Tooth Surface O (Performed by [facility] [place]) T - (D2392) Resin-based composite, 2 surfaces, posterior on Tooth # 4 on Tooth Surface OD (Performed by [facility] [place]) T - (D2391) Resin-based composite - one surface, posterior on Tooth # 29 on Tooth Surface O (Performed by [facility] [place]) T - (D2392) Resin-based composite, 2 surfaces, posterior on Tooth # 30 on Tooth Surface MO (Performed by [facility] [place]) T - (D2391) Resin-based composite - one surface, posterior on Tooth # 18 on Tooth Surface O (Performed by [facility], Leslee) T - (D2391) Resin-based composite - one surface, posterior on Tooth # 12 on Tooth Surface O (Performed by [facility] Leslee) Existing:Type - CDT Code - Description[E] [employer] On #14 Surface MO, #2 Surface OL[E] Resin-Based Composite - Direct On #19 Surface O, #29 Surface OD, #3 Surface MOL, #30 Surface OM, #31 Surface O[E] Missing - [place] On #1 Surface O Region XR, #16 Surface O Region XR, #17 Surface O Region XR, #32 Surface O Region XR Chart Notes:kiah (Jan 30 2020 11:00AM): CC: Establish careRMH: New pt; Hx of multiple TBI, faiting spells - sit up slowlyAllergies: NoneSmoking Status: NeverBP: See BP log - Taken today - WNLTemp: 98.8EO/IO: Oral cancer screening performed - no abnormalites noted; normal mucosa with no white or raised patches. No lymphadenopathy. No poping or clicking of the TMJ. Pt has fair oral health and fair oral hygiene. Several areas of decay per doc. Pt reports he brushes 2xday but does not floss. Moderate calc, light plaque, and light bleeding. 1-3mm probing depths with no BOP. Behavior: Very compliantTX: Adult prophy, Perio charting, FMX, and exam by Dr. Moreno. Additional PPE used due to COVID-19. This included a minimum of a N95, a surgical mask, a hair covering, a face shield, proctective eyewear, a gown, and additional barriers.OHI: Spoke to pt about brushing and flossing. NV: Restorative. 6MRCLeslee Fang RDH by kiah (01/30/2020 11:00 AM): ; noel (Jan 31 2020 7:46AM): CC: Establish careRMH: New pt; Hx of multiple TBI, faiting spells - sit up slowlyAllergies: NoneSmoking Status: NeverBP: See BP log - Taken today - WNLTemp: 98.8. Reviewed Xrays. Exam: caries detected. OCS: WNL, IO/ EO completed, No significant hard findings upon clinical exam.Additional PPE requirements due to COVID-19 in the dental setting, N95, surgical mask, hair covering, gown and shieldPt was cooperative. OHI given Referral: N/A NV:restorationLeslee Fang RDH by noel (01/31/2020 7:46 AM): Tooth Notes and Watches: Assessment & Plan Medications:DIVALPROEXCYMBALTAMedication Changes:Added: * CYMBALTA* DIVALPROEXAllergies:No Known Allergies (updated 01/29/2020) Name Value Range Interpretation Code Description Data Tamela rce(s) Supporting Document(s) Procedure Social History Code Duration Value Status Description Data Source(s ) Smoking 05/11/2020 12:00:00 AM EST Never Smoker completed Never S moker eCW1 ([facility]) Smoking 05/11/2020 12:00:00 AM EST Never Smoker completed Never S moker eCW1 ([facility]) Smoking 05/11/2020 12:00:00 AM EST Never Smoker completed Never S moker eCW1 ([facility]) Smoking 05/06/2020 12:00:00 AM EST Never Smoker completed Never S moker eCW1 ([facility]) Smoking 04/01/2020 12:00:00 AM EST Never Smoker completed Never S moker eCW1 ([facility]) Vital Signs ID Date Data Source UNK Name Value Range Interpretation Code Description Data Source(s) Diastolic blood pressure 80 mm[Hg] 80 mm[Hg] eCW1 ([facility]) Systolic blood pressure 132 mm[Hg] 132 mm[Hg] e CW1 ([facility]) Body temperature 97.3 [degF] 97.3 [degF] eCW1 ( [facility]) Respiratory rate 18 /min 18 /min eCW1 ([facility]) Heart rate 113 /min 113 /min eCW1 ([facility]) Body mass index (BMI) [Ratio] 33.64 kg/m2 33.64 kg/m2 W1 ([facility]) Body height 73 [in_i] 73 [in_i] eCW1 ([facility]) Body weight 255 [lb_av] 255 [lb_av] eCW1 ([facility]) Diastolic blood pressure 88 mm[Hg] 88 mm[Hg] eCW1 ([facility]) Systolic blood pressure 118 mm[Hg] 118 mm[Hg] e CW1 ([facility]) Body temperature 98.8 [degF] 98.8 [degF] eCW1 ( [facility]) Respiratory rate 18 /min 18 /min eCW1 ([facility]) Heart rate 98 /min 98 /min eCW1 ([facility]) Body mass index (BMI) [Ratio] 33.24 kg/m2 33.24 kg/m2 eCW1 ([facility]) Body height 73 [in_i] 73 [in_i] eCW1 ([facility]) Body weight 252 [lb_av] 252 [lb_av] eCW1 ([facility]) Diastolic blood pressure 80 mm[Hg] 80 mm[Hg] eCW1 ([facility]) Systolic blood pressure 138 mm[Hg] 138 mm[Hg] e CW1 ([facility]) Body temperature 96.8 [degF] 96.8 [degF] eCW1 ( [facility]) Respiratory rate 18 /min 18 /min eCW1 ([facility]) Heart rate 102 /min 102 /min eCW1 ([facility]) Body mass index (BMI) [Ratio] 33.64 kg/m2 33.64 kg/m2 eCW1 ([facility]) Body height 73 [in_i] 73 [in_i] eCW1 ([facility]) Body weight 255 [lb_av] 255 [lb_av] eCW1 ([facility]) Body height 73 [in_i] 73 [in_i] eCW1 ([facility]) Body weight 258 [lb_av] 258 [lb_av] eCW1 ([facility]) Diastolic blood pressure 84 mm[Hg] 84 mm[Hg] eCW1 ([facility]) Systolic blood pressure 114 mm[Hg] 114 mm[Hg] e CW1 ([facility]) Body temperature 98.2 [degF] 98.2 [degF] eCW1 ( [facility]) Respiratory rate 18 /min 18 /min eCW1 ([facility]) Heart rate 74 /min 74 /min eCW1 ([facility]) Body mass index (BMI) [Ratio] 34.04 kg/m2 34.04 kg/m2 eCW1 ([facility]) [place] body weight 184 [lb_av] 184 [lb_av] MEDEN T ([facility]) Body mass index (BMI) [Ratio] 34.3 kg/m2 34.3 k g/m2 MEDENT ([facility], ) Body weight 260.00 [lb_av] 260.00 [lb_av] COLINEN T ([facility], ) Body height 73 [in_i] 73 [in_i] [facility] ([facility], ) 6'1" Respiratory rate 14 /min 14 /[facility] Heart rate 90 /min 90 /min [facility] Diastolic blood pressure 100 mm[Hg] 100 mm[Hg] [facility] Systolic blood pressure 140 mm[Hg] 140 mm[Hg] M EDKARLOS ([facility], ) Patient Treatment Plan of Care Planned Activity Planned Date Details Description Data Source (s) Levaquin 750 MG 05/06/2020 12:00:00 AM EST eCW1 ([facility])
[2020-05-20] MEDS ORDERED: ALBU8.5H INH (18:42)
[2020-05-20 19:05] LABS: BASO # 0.1 10^3/uL (0.0-0.2); BASO % 1.3 % (0.0-1.0); EOS # 0.2 10^3/uL (0.0-0.5); HEMATOCRIT 43.2 % (42.0-52.0); HEMOGLOBIN 14.5 g/dl (13.5-17.5); LYMPH # 1.8 10^3/uL (1.5-5.0); LYMPH % 32.5 % (24.0-44.0); MEAN CORPUSCULAR HEMOGLOBIN 29.9 pg (27.0-33.0); MEAN CORPUSCULAR HGB CONC 33.6 g/dl (32.0-36.5); MEAN CORPUSCULAR VOLUME 89.1 fl (80.0-96.0); MONO # 0.5 10^3/uL (0.0-0.8); MONO % 8.7 % (2.0-8.0); NEUTROPHILS # 2.9 10^3/uL (1.5-8.5); NEUTROPHILS % 54.1 % (36.0-66.0); PLATELET COUNT, AUTOMATED 264 10^3/uL (150-450); RED BLOOD COUNT 4.85 10^6/uL (4.30-6.10); WHITE BLOOD COUNT 5.4 10^3/uL (4.0-10.0)
--- NOTE | 2020-05-20 19:23 | REP ---
INDICATION: Coronavirus workup. COMPARISON: AP portable chest 05/03/2020, CT 10/14/2012. TECHNIQUE: AP seated portable chest FINDINGS: The lungs are well inflated. The patchy infiltrate in the left perihilar and mid lung zone is resolved. There is no pleural effusion, dense consolidation, other new patchy infiltrates, pleural thickening or apical scarring. No pneumothorax. Heart, mediastinal and hilar contours are normal. The aorta and airway are intact. The bony thorax is unremarkable. IMPRESSION: 1. Clearing of the patchy infiltrate or atelectasis in the left mid lung zone since the previous study on 05/03/2020. No effusion, new infiltrate or atelectasis, cardiomegaly or edema. Symmetric hilar contours and no widening of the mediastinum. <Electronically signed by Elmer Bradshaw > 05/20/201919
[2020-05-20 19:28] LABS: ALBUMIN 4.4 GM/DL (3.2-5.2); ALT/SGPT 42 U/L (12-78); BILIRUBIN,TOTAL 0.4 MG/DL (0.2-1.0); BLOOD UREA NITROGEN 10 MG/DL (7-18); CALCIUM LEVEL 9.1 MG/DL (8.5-10.1); CARBON DIOXIDE LEVEL 27 MEQ/L (21-32); CHLORIDE LEVEL 112 MEQ/L (98-107); CK-MB VALUE MASS 2.3 NG/ML (<3.6); CPK CREATINE PHOSPHOKINASE 179 U/L (39-308); CREATININE FOR GFR 0.81 MG/DL (0.70-1.30); FERRITIN 123 NG/ML (26-388); GLOMERULAR FILTRATION RATE > 60.0 (>60); GLUCOSE, FASTING 78 MG/DL (70-100); LDH LACTATE DEHYDROGENASE 262 U/L (87-241); MB/CK RELATIVE INDEX 1.28 (< OR =4); POTASSIUM SERUM 3.9 MEQ/L (3.5-5.1); SODIUM LEVEL 145 MEQ/L (136-145); TOTAL PROTEIN 7.4 GM/DL (6.4-8.2); TROPONIN I < 0.02 NG/ML (< 0.10)
[2020-05-20] MEDS ORDERED: NS 1,000 ML IV ONE (19:35)
[2020-05-20] MEDS ORDERED: ONDANSETRON 4MG/2ML VIAL IV ONE (19:35)
[2020-05-20 19:48] LABS: LIPASE 117 U/L (73-393)
[2020-05-20] MEDS ORDERED: ISOVUE-370 76% 100ML VIAL As Ordered ONE (20:15)
--- OUTSIDE RECORDS SUMMARY | 2020-05-20 20:43 | CCD ---
Author Author [facility] Organization [facility] Address Unknown Phone Unavailable Care Team Providers Care Angle Shearer Name Role Phone Myers, T Pawel PA [...] is protected by Article 27-F of the [facility] Public Health law. If you continue you may have access to information: Regarding HIV / AIDS; Provided by facilities licensed or operated by the [facility] Office of Mental Health; or Provided by the [facility] Office for People With Developmental Disabilities. If such information is present, then the following [facility] mandated warning applies: This information has been [...] law may result in a fine or usp sentence or both. A general authorization for the release of medical or other information is NOT sufficient authorization for further disc losure. Family History Family Member Name Family Member Gender Family Member Status Date o f Status Description Data Source(s) Unknown Unknown Problem MEDENT ([facility] Unknown Male Problem MEDENT ([facility]) Encounters Encounter Providers Location Date Indications Data Source(s ) [place] [address] [address] 05/11/2020 12:00:00 AM EST [facility]CW[facility] [place] [address] [address] 05/08/2020 12:00:00 AM EST eCW1 ([facility] [place] [address] [address] 05/06/2020 12:00:00 AM EST eCW1 ([facility]) Unknown [address] [place] [address] 05/06/2020 12:00:00 AM EST eCW1 ([facility]) Outpatient Attender: Leland SHABAZZ 04/26/19 12:57:38 PM EST - 04/26/2020 01:44:15 PM EST DocuTap ([facility] ) [place] [address] [place] [address] 04/01/2020 12:00:00 AM EST eCW1 ([facility]) Outpatient Attender: Candida Wilde MD Main office - [place] 02/27/2020 10:30:00 AM EST MEDENT ([facility]) Outpatient Attender: [facility] 01/31/2020 07:48:01 AM [facility] Outpatient Attender: [facility] 01/31/2020 07:47:01 AM [facility] Outpatient Attender: [facility] 01/29/2020 03:05:01 PM [facility] Outpatient Attender: [facility] 01/29/2020 03:01:01 PM [facility] Outpatient Attender: [facility] 01/29/2020 02:59:01 PM [facility] Outpatient Attender: [facility] 01/29/2020 12:42:01 PM [facility] Outpatient Attender: [facility] 01/29/2020 12:41:01 PM EST [facility] Outpatient Attender: [facility] 01/29/2020 12:19:00 PM EST [facility] Outpatient Attender: Candida Wilde MD Main office - [place] 11/14/2019 02:45:00 PM EDT MEDENT ([facility]) Outpatient Attender: Candida Wilde MD Main office - [place] 10/03/2019 10:00:00 AM EDT MEDENT ([facility]) Outpatient Attender: QUIANA [facility] WATNDC 09/03/2019 08:00:15 PM EDT [facility] Outpatient Referrer: Pawel SHABAZZ 04/22/2019 12:42:00 PM EST [facility] Immunizations Vaccine Date Status Description Data Source(s) influenza, recombinant, quadrIvalent,injectable, prese rvative free 04/01/2020 09:30:00 AM EST completed eCW1 ([facility]) influenza, recombinant, quadrIvalent,injectable, prese rvative free 04/01/2020 09:30:00 AM EST completed eCW1 ([facility]) influenza, recombinant, quadrIvalent,injectable, prese rvative free 04/01/2020 09:30:00 AM EST completed eCW1 ([facility]) influenza, recombinant, quadrIvalent,injectable, prese rvative free 04/01/2020 09:30:00 AM EST completed eCW1 ([facility]) influenza, recombinant, quadrIvalent,injectable, prese rvative free 04/01/2020 09:30:00 AM EST completed eCW1 ([facility]) Medications Medication Brand Name Start Date Product [...] oAir HFA 108 (90 Base) MCG/ACT eCW1 ([facility]) 200 ACTUAT Albuterol 0.09 MG/ACTUAT Mete red Dose Inhaler [ProAir] ProAir HFA 108 (90 Base) MCG/ACT ProAir HFA 108 (90 Base) MCG/ACT 05/08/2020 12:00:00 AM EST 2.0 {puffs_as_needed} active Pr oAir HFA 108 (90 Base) MCG/ACT eCW1 ([facility]) 200 ACTUAT Albuterol 0.09 MG/ACTUAT Mete red Dose Inhaler [ProAir] ProAir HFA 108 (90 Base) MCG/ACT ProAir HFA 108 (90 Base) MCG/ACT 05/08/2020 12:00:00 AM EST 2.0 {puffs_as_needed} active Pr oAir HFA 108 (90 Base) MCG/ACT eCW1 ([facility]) Levaquin 750 MG UNK 05/06/2020 12:00:00 AM EST 1.0 {tablet} active Levaquin 750 MG eCW1 ([facility]) Levaquin 750 MG UNK 05/06/2020 12:00:00 AM EST 1.0 {tablet} suspended Levaquin 750 MG eCW1 ([facility]) Levaquin 750 MG UNK 05/06/2020 12:00:00 AM EST 1.0 {tablet} suspended Levaquin 750 MG eCW1 ([facility]) 750 mg 05/06/2020 12:00:00 AM EST tablet 5 TAKE ONE TABLET BY MOUTH EVERY DAY FOR 5 DAYS TAKE ONE TABLET BY MOUTH EVERY DAY FOR 5 DAYS SOLD: 05/06/2020 [facility] Levaquin 750 MG UNK 05/06/2020 12:00:00 AM EST 1.0 {tablet} suspended Levaquin 750 MG eCW1 ([facility]) 100 mg 05/03/2020 12:00:00 AM EST capsule [...] type / Coverage type Policy ID Covered libertarian ID Covered libertarian's relationship to st Policy St Plan Information [facility] COMMUNITY PLAN [facility] [id number] SP [id number] MANILA CG Scholar(MCAID) O [id number] S [id number] [facility] COMMUNITY PLAN [facility] [id number] SP [id number] [facility] Optum VA Plan/ [id number] Self [id number] Managed Care - [facility] Community Plan P [id number] S [id number] Medicaid S [id number] S [id number] Self Pay P UNAVAILABLE S UNAVAILA BLE [facility] COMMUNITY PLAN MCDO [id number] SP [id number] [facility] [id number] Self [id number] [facility] COMM[facility] [id number] SP [id number] [facility] Community Plan Commercial [id number] Self [id number] [facility]AN [facility] [id number] SP [id number] [facility] Community Plan Commercial [id number] Self [id number] MANILA CG Scholar(MCAID) O [id number] S [id number] [facility] Hmo Commercial [id number] Self [id number] [employer] Hmo Commercial [id number] Self [id number] [place] [employer] [facility] Commercial [id number] Self [id number] [facility] Commercial Self SELF PAY UNAVAILABLE UNAVAILA BLE 'S ADMINISTRATION [id number] SP [id number] MEDICAID [id number] SP [id number] [employer]UE [employer]OSS [employer] PLAN [id number] SP [id number] [facility] [id number] SP [id number] Problems, Conditions, and Diagnoses Code Display Name Description Problem Type Effective Dates Data Source(s) E78.5 Hyperlipidemia Hyperlipidemia Problem 04/01/2020 12:00: 00 AM EST eCW1 ([facility]) F43.10 [id number] PTSD (post-traumatic stress disorder) Pro blem 04/01/2020 12:00:00 AM EST eCW1 ([facility]) N52.9 Erectile dysfunction Erectile dysfunction Problem 04/01/2020 12:00:00 AM EST eCW1 ([facility]) F32.9 Major depressive disorder Major depressive disorder Pr oblem 04/01/2020 12:00:00 AM EST eCW1 ([facility]) G47.33 [id number] Obstructive sleep apnea (adult) (pediatri c) Problem 04/01/2020 12:00:00 AM EST eCW1 ([facility]) G47.33 Obstructive sleep apnea Obstructive sleep apnea Proble m 04/01/2020 12:00:00 AM EST eCW1 ([facility]) [id number] Vertigo of central origin Vertigo of central origin Pr oblem 10/03/2019 12:00:00 AM EDT MEDENT ([facility]) [id number] Syncope and collapse Syncope and collapse Problem 10/03/2019 12:00:00 AM EDT MEDENT ([facility]) [id number] Chronic tension-type headache Chronic tension-type hea dache Problem 10/03/2019 12:00:00 AM EDT MEDENT ([facility]) [id number] Migraine without aura, not refractory Mi graine without aura, not refractory Problem 10/03/2019 12:00:00 AM EDT MEDENT ([facility]) [id number] Dizziness and giddiness Dizziness and giddiness Proble m 10/03/2019 12:00:00 AM EDT MEDENT ([facility] ) Surgeries/Procedures Procedure Description Date Indications Data Source(s) Immunization: Flublok Quadrivalent (18 years & older) 0.5mL IM (Influenza) 04/01/2020 12:00:00 AM EST eCW1 ([facility]) TSTG ANS FUNCJ CARDIOVAGAL INNERVAJ PARASYMP 0 12:00:00 AM EDT MEDENT ([facility] ) TSTG ANS FUNCJ CARDIOVAGAL INNERVAJ PARASYMP 0 12:00:00 AM EDT MEDENT ([facility] ) TESTING AUTONOMIC NERVOUS SYSTEM FUNCTION 11/27/2019 1 2:00:00 AM EDT MEDENT ([facility] TESTING AUTONOMIC NERVOUS SYSTEM FUNCTION 11/27/2019 1 2:00:00 AM EDT MEDENT ([facility] ) ELECTROENCEPHALOGRAM W/REC AWAKE&ASLEEP 10/23/2019 12: 00:00 AM EDT MEDENT ([facility] ) ELECTROENCEPHALOGRAM W/REC AWAKE&ASLEEP 10/23/2019 12: 00:00 AM EDT MEDENT ([facility] Magnetic Resonance Angiogtaphy Head W/O Contrast Material(S) 10/09/2019 12:00:00 AM EDT MEDENT ([facility] Magnetic Resonance Angiogtaphy Head W/O Contrast Material(S) 10/09/2019 12:00:00 AM EDT MEDENT ([facility]) Magnetic Resonance Angiography Neck W/O Contrast Materials 10/09/2019 12:00:00 AM EDT MEDENT ([facility]) Magnetic Resonance Angiography Neck W/O Contrast Materials 10/09/2019 12:00:00 AM EDT MEDENT ([facility]) Results ID Date Data Source CBC with Auto Differential 05/11/2020 12:00:00 AM EST eCW1 ( [facility]) Name Value Range Interpretation Code Description Data Tamela rce(s) Supporting Document(s) 6.3 4.0-10.0 WHITE BLOOD COUNT eCW1 ([facility]) 14.5 13.5-17.5 HEMOGLOBIN eCW1 ([facility]) 4.80 4.30-6.10 RED BLOOD COUNT eCW1 ([facility]) 89.4 80.0-96.0 MEAN CORPUSCULAR VOLUME e CW1 ([facility]) 33.8 32.0-36.5 MEAN CORPUSCULAR HGB CONC eCW1 ([facility]) 42.9 42.0-52.0 HEMATOCRIT eCW1 ([facility]) 30.2 27.0-33.0 MEAN CORPUSCULAR HEMOGLOB IN eCW1 ([facility]) 307 150-450 PLATELET COUNT, AUTOMATED eCW1 ([facility]) 24.5 24.0-44.0 LYMPH % eCW1 ([facility]) 12.0 11.5-14.5 RED CELL DISTRIBUTION WID TH eCW1 ([facility]) 58.8 36.0-66.0 NEUTROPHILS % eCW1 ([facility]) 1.0 0.0-1.0 BASO % eCW1 ([facility]) 3.2 0.0-3.0 EOS % eCW1 ([facility]) 9.5 2.0-8.0 MONO % eCW1 ([facility]) 3.0 0-3.0 IMMATURE GRANULOCYTE % eCW1 ([facility]) 3.7 1.5-8.5 NEUTROPHILS # eCW1 ([facility]) 0.0 0-0 NUCLEATED RED BLOOD CELL % eCW 1 ([facility]) 1.5 1.5-5.0 LYMPH # eCW1 ([facility]) 0.6 0.0-0.8 MONO # eCW1 ([facility]) 0.1 0.0-0.2 BASO # eCW1 ([facility]) 0.2 0.0-0.5 EOS # eCW1 ([facility]) ID Date Data Source LACTIC ACID LEVEL, LACTATE 05/11/2020 12:00:00 AM EST eCW1 ( [facility]) Name Value Range Interpretation Code Description Data Tamela rce(s) Supporting Document(s) LACTIC ACID LEVEL, LACTATE eCW 1 ([facility]) ID Date Data Source DDIMER QUANT 05/11/2020 12:00:00 AM EST eCW1 ([facility]) Name Value Range Interpretation Code Description Data Tamela rce(s) Supporting Document(s) 321.88 <500 D-DIMER QUANT eCW1 ([facility]) ID Date Data Source ERYTHROCYTE SEDIMENTATION RATE 05/11/2020 12:00:00 AM EST eC W1 ([facility]) Name Value Range Interpretation Code Description Data Tamela rce(s) Supporting Document(s) 23 0-15 ERYTHROCYTE SEDIMENTATION RATE eCW1 ([facility]) ID Date Data Source C REACTIVE PROTEIN QUANTITATIV (At [facility]) 05/11/2020 12:00 :00 AM EST eCW1 ([facility]) Name Value Range Interpretation Code Description Data Tamela rce(s) Supporting Document(s) 0.36 0.00-0.30 C REACTIVE PROTEIN QUANTI TATIV eCW1 ([facility]) ID Date Data Source Comprehensive Metabolic Profile (CMP) 05/11/2020 12:00:00 AM EST eCW1 ([facility]) Name Value Range Interpretation Code Description Data Tamela rce(s) Supporting Document(s) 22 7-18 BLOOD UREA NITROGEN eCW1 ([facility]) 90 70-100 GLUCOSE, FASTING eCW1 ([facility]) 0.76 0.70-1.30 CREATININE FOR GFR eCW1 ([facility]) 143 136-145 SODIUM LEVEL eCW1 ([facility]) > 60.0 >60 GLOMERULAR FILTRATION RATE eCW 1 ([facility]) 30 21-32 CARBON DIOXIDE LEVEL eCW1 ([facility]) 5.3 3.5-5.1 POTASSIUM SERUM eCW1 ([facility]) 9.4 8.5-10.1 CALCIUM LEVEL eCW1 ([facility]) 107 98-107 CHLORIDE LEVEL eCW1 ([facility]) 89 45-117 ALKALINE PHOSPHATASE eCW1 ([facility]) 34 12-78 ALT/SGPT eCW1 ([facility]) 14 7-37 AST/SGOT eCW1 ([facility]) 0.4 0.2-1.0 BILIRUBIN,TOTAL eCW1 ([facility]) 3.8 3.2-5.2 ALBUMIN eCW1 ([facility]) 1.2 ALBUMIN/GLOBULIN RATIO eCW1 ([facility]) 6.9 6.4-8.2 TOTAL PROTEIN eCW1 ([facility]) ID Date Data Source PLZ CHEST 2 VIEW 05/06/2020 12:00:00 AM EST eCW1 ([facility]) Name Value Range Interpretation Code Description Data Tamela rce(s) Supporting Document(s) PLZ CHEST 2 VIEW eCW1 ([facility]) ID Date Data Source [id number] 04/26/2020 12:00:00 AM EST [facility] Name Value Range Interpretation Code Description Data Tamela rce(s) Supporting Document(s) Carestart Rapid COVID Antigen Test Positive [facility] This lab was reported by Holly duggan. ID Date Data Source TESTOSTERONE FREE & TOTAL 04/01/2020 12:00:00 AM EST eCW1 ([facility]) Name Value Range Interpretation Code Description Data Tamela rce(s) Supporting Document(s) 12.0 8.7-25.1 eCW1 ([facility]) 217.0 264-916 eCW1 ([facility]) ID Date Data Source LIPID PANEL (CARDIAC RISK) 04/01/2020 12:00:00 AM EST eCW1 ( [facility]) Name Value Range Interpretation Code Description Data Tamela rce(s) Supporting Document(s) Triglyceride [Mass/volume] in Serum or Plasma by calculation 142 <150 eCW1 ([facility]) Cholesterol [Moles/volume] in Serum or Plasma 233 <200 eCW1 ([facility]) 4.396 <5 eCW1 ([facility]) Cholesterol in LDL [Mass/volume] in Serum or Plasma by calculation 15 2 <100 eCW1 ([facility]) Cholesterol in HDL [Moles/volume] in Serum or Plasma 53 >40 eCW1 ([facility]) 180 eCW1 ([facility]) ID Date Data Source FREE T4 & TSH PANEL 04/01/2020 12:00:00 AM EST eCW1 ([facility]) Name Value Range Interpretation Code Description Data Tamela rce(s) Supporting Document(s) 1.360 0.358-3.740 eCW1 ([facility]) 0.93 0.76-1.46 eCW1 ([facility]) ID Date Data Source [id number] 04/01/2020 12:00:00 AM EST eCW1 ([facility]) Name Value Range Interpretation Code Description Data Tamela rce(s) Supporting Document(s) Hemoglobin A1c/Hemoglobin.total in Blood 5.3 eCW1 ([facility]) ID Date Data Source CBC with Differential 04/01/2020 12:00:00 AM EST eCW1 ([facility]) Name Value Range Interpretation Code Description Data Tamela rce(s) Supporting Document(s) 6.7 4.0-10.0 eCW1 ([facility]) 5.09 4.30-6.10 eCW1 ([facility]) 45.6 42.0-52.0 eCW1 ([facility]) 30.5 27.0-33.0 eCW1 ([facility]) 89.6 80.0-96.0 eCW1 ([facility]) 15.5 13.5-17.5 eCW1 ([facility]) 34.0 32.0-36.5 eCW1 ([facility]) 12.0 11.5-14.5 eCW1 ([facility]) 27.7 24.0-44.0 eCW1 ([facility]) 57.5 36.0-66.0 eCW1 ([facility]) 255 150-450 eCW1 ([facility]) 5.5 0.0-3.0 eCW1 ([facility]) 1.0 0.0-1.0 eCW1 ([facility]) 3.8 1.5-8.5 eCW1 ([facility]) 1.9 1.5-5.0 eCW1 ([facility]) 8.2 0.0-5.0 eCW1 ([facility]) 0.1 0.0-0.2 eCW1 ([facility]) 0.6 0.0-0.8 eCW1 ([facility]) 0.4 0.0-0.5 eCW1 ([facility]) ID Date Data Source [id number] 01/29/2020 12:40:32 PM [facility] Vital SignsBlood Pressure: 128/88 Patient [...] 13 on Tooth Surface DO (Performed by [facility]) T - (D2391) Resin-based composite - one surface, posterior on Tooth # 3 on Tooth Surface O (Performed by [facility] [place]) T - (D2392) Resin-based composite, 2 surfaces, posterior on Tooth # 4 on Tooth Surface OD (Performed by [facility] [place]) T - (D2391) Resin-based composite - one surface, posterior on Tooth # 29 on Tooth Surface O (Performed by [facility] [place]) T - (D2392) Resin-based composite, 2 surfaces, posterior on Tooth # 30 on Tooth Surface MO (Performed by [facility] [place]) T - (D2391) Resin-based composite - one surface, posterior on Tooth # 18 on Tooth Surface O (Performed by [facility] [place]) T - (D2391) Resin-based composite - one surface, posterior on Tooth # 12 on Tooth Surface O (Performed by [facility] [place]) Existing:Type - CDT Code - Description[E] [employer] On #14 Surface MO, #2 Surface OL[E] Resin-Based Composite - Direct On #19 Surface O, #29 Surface OD, #3 Surface MOL, #30 Surface OM, #31 Surface O[E] Missing - [place] On #1 Surface O Region [...] Never Smoker completed Never S moker eCW1 ([facility]) Smoking 05/11/2020 12:00:00 AM EST Never Smoker completed Never S moker eCW1 ([facility]) Smoking 05/11/2020 12:00:00 AM EST Never Smoker completed Never S moker eCW1 ([facility]) Smoking 05/06/2020 12:00:00 AM EST Never Smoker completed Never S moker eCW1 ([facility]) Smoking 04/01/2020 12:00:00 AM EST Never Smoker completed Never S moker eCW1 ([facility]) Vital Signs ID Date Data Source UNK Name Value Range Interpretation Code Description Data Source(s) Diastolic blood pressure 80 mm[Hg] 80 mm[Hg] eCW1 ([facility]) Systolic blood pressure 132 mm[Hg] 132 mm[Hg] e CW1 ([facility]) Body temperature 97.3 [degF] 97.3 [degF] eCW1 ( [facility]) Respiratory rate 18 /min 18 /min eCW1 ([facility]) Heart rate 113 /min 113 /min eCW1 ([facility]) Body mass index (BMI) [Ratio] 33.64 kg/m2 33.64 kg/m2 W1 ([facility]) Body height 73 [in_i] 73 [in_i] eCW1 ([facility]) Body weight 255 [lb_av] 255 [lb_av] eCW1 ([facility]) Diastolic blood pressure 88 mm[Hg] 88 mm[Hg] eCW1 ([facility]) Systolic blood pressure 118 mm[Hg] 118 mm[Hg] e CW1 ([facility]) Body temperature 98.8 [degF] 98.8 [degF] eCW1 ( [facility]) Respiratory rate 18 /min 18 /min eCW1 ([facility]) Heart rate 98 /min 98 /min eCW1 ([facility]) Body mass index (BMI) [Ratio] 33.24 kg/m2 33.24 kg/m2 eCW1 ([facility]) Body height 73 [in_i] 73 [in_i] eCW1 ([facility]) Body weight 252 [lb_av] 252 [lb_av] eCW1 ([facility]) Diastolic blood pressure 80 mm[Hg] 80 mm[Hg] eCW1 ([facility]) Systolic blood pressure 138 mm[Hg] 138 mm[Hg] e CW1 ([facility]) Body temperature 96.8 [degF] 96.8 [degF] eCW1 ( [facility]) Respiratory rate 18 /min 18 /min eCW1 ([facility]) Heart rate 102 /min 102 /min eCW1 ([facility]) Body mass index (BMI) [Ratio] 33.64 kg/m2 33.64 kg/m2 eCW1 ([facility]) Body height 73 [in_i] 73 [in_i] eCW1 ([facility]) Body weight 255 [lb_av] 255 [lb_av] eCW1 ([facility]) Body height 73 [in_i] 73 [in_i] eCW1 ([facility]) Body weight 258 [lb_av] 258 [lb_av] eCW1 ([facility]) Diastolic blood pressure 84 mm[Hg] 84 mm[Hg] eCW1 ([facility]) Systolic blood pressure 114 mm[Hg] 114 mm[Hg] e CW1 ([facility]) Body temperature 98.2 [degF] 98.2 [degF] eCW1 ( [facility]) Respiratory rate 18 /min 18 /min eCW1 ([facility]) Heart rate 74 /min 74 /min eCW1 ([facility]) Body mass index (BMI) [Ratio] 34.04 kg/m2 34.04 kg/m2 eCW1 ([facility]) [place] body weight 184 [lb_av] 184 [lb_av] MEDEN T ([facility]) Body mass index (BMI) [Ratio] 34.3 kg/m2 34.3 k g/m2 MEDENT ([facility] ) Body weight 260.00 [lb_av] 260.00 [lb_av] COLINEN T ([facility], ) Body height 73 [in_i] 73 [in_i] [facility] ([facility] ) 6'1" Respiratory rate 14 /min 14 /min [facility] ( [facility] ) Heart rate 90 /min 90 /min [facility] Diastolic blood pressure 100 mm[Hg] 100 mm[Hg] [facility] Systolic blood pressure 140 mm[Hg] 140 mm[Hg] M EDKARLOS ([facility], ) Patient Treatment Plan of Care Planned Activity Planned Date Details Description Data Source (s) Levaquin 750 MG 05/06/2020 12:00:00 AM EST eCW1 ([facility])
--- NOTE | 2020-05-20 22:06 | REPVR ---
PROCEDURE INFORMATION: Exam: CT Angiography Chest with Contrast Exam date and time: 05/20/20 (8:43pm) Age: 29 years old Clinical indication: Chest pain. Recent Covid. TECHNIQUE: Imaging protocol: Computed tomographic angiography of the chest with contrast. 3D rendering (Not supervised by radiologist): MIP and/or 3D reconstructed images were created by the technologist. Radiation optimization: All CT scans at this facility use at least one of these dose optimization techniques: automated exposure control; mA and/or kV adjustment per patient size (includes targeted exams where dose is matched to clinical indication); or iterative reconstruction. Contrast material: Isovue 370 Contrast volume: 100 ml Contrast route: IV COMPARISON: Portable CXR of 05/20/20 FINDINGS: Pulmonary arteries: Normal. No pulmonary emboli. Aorta: Unremarkable. No aortic aneurysm. No aortic dissection. Lungs: Mild hypoventilatory changes. No consolidation. No masses. Pleural spaces: Unremarkable. No pneumothorax. No pleural effusions. Heart: Unremarkable. No cardiomegaly. No pericardial effusion. Lymph nodes: Unremarkable. No enlarged lymph nodes. Bones/joints: Unremarkable. No acute fracture. Soft tissues: Unremarkable. IMPRESSION: No acute findings. No filling defects suspicious for pulmonary emboli are seen. There is no CT evidence of aortic dissection nor leakage. No aortic aneurysm is appreciated. Electronically signed by: Jina Maldonado On 05/20/2020 22:07:14 PM
--- NOTE | 2020-05-20 22:18 | REPVR ---
PROCEDURE INFORMATION: Exam: CT Abdomen and Pelvis with Contrast Exam date and time: 05/20/20 (8:43pm) Age: 29 years old Clinical indication: Generalized abdominal pain and vomiting TECHNIQUE: Imaging protocol: Computed tomography of the abdomen and pelvis with contrast. Radiation optimization: All CT scans at this facility use at least one of these dose optimization techniques: automated exposure control; mA and/or kV adjustment per patient size (includes targeted exams where dose is matched to clinical indication); or iterative reconstruction. Contrast material: Isovue 370 Contrast volume: 100 ml Contrast route: IV COMPARISON: CT ABDOMEN PELVIS of 01/30/19 FINDINGS: Liver: Normal. No solid mass. Gallbladder and bile ducts: Normal. No calcified stones. No ductal dilatation. Pancreas: Normal. No ductal dilatation. Spleen: Normal. No splenomegaly. Adrenal glands: Normal. No mass. Kidneys and ureters: Normal. No hydronephrosis. Stomach and bowel: Unremarkable. No bowel obstruction. No mucosal thickening. Appendix: No evidence of appendicitis. Intraperitoneal space: Unremarkable. No free air. No significant fluid collection. Vasculature: Unremarkable. No abdominal aortic aneurysm. Lymph nodes: Unremarkable. No enlarged lymph nodes. Urinary bladder: Unremarkable as visualized. Reproductive: Unremarkable as visualized. Bones/joints: Unremarkable. No acute fracture. Soft tissues: Unremarkable. IMPRESSION: No acute findings. Electronically signed by: Jina Maldonado On 05/20/2020 22:18:40 PM
[2020-05-20] MEDS ORDERED: ONDA4TAB6 PO (23:20)
[2020-05-20] MEDS ORDERED: ONDANSETRON 4 MG ORAL DISINTEGRATING TAB PO SCH (23:20)
[2020-05-20 23:45] VITALS: BP 146/71
--- NOTE | 2020-05-21 09:37 | ECGEPIP ---
[facility] - ED Test Date: 2020-05-20 Pat Name: NIDIA TINEO Department: Room: - Gender: Male Patient Care Director: FARAZ : 1990 Requested By: LEROY Motta Order Number: [id number] Reading MD: Inez Tillman Measurements Intervals [place] Rate: 85 P: 28 [place]: 136 QRS: 25 QRSD: 90 T: 43 QT: 368 QTc: 437 Interpretive Statements Normal sinus rhythm increased rate 05/03/20 Electronically Signed on 05-21-2020 9:37:05 EST by Inez Tillman
== END 2020-05-20 23:56 | disposition home or self-care (01) ==
LOC: M ED 18:20
DX: R11.2 Nausea with vomiting, unspecified (principal); R07.9 Chest pain, unspecified; R06.02 Shortness of breath; U07.1 COVID-19; Z87.01 Personal history of pneumonia (recurrent); I10 Essential (primary) hypertension; G47.33 Obstructive sleep apnea (adult) (pediatric); F43.10 Post-traumatic stress disorder, unspecified; R42 Dizziness and giddiness; Z87.820 Personal history of traumatic brain injury; Z79.899 Other long term (current) drug therapy
CPT/HCPCS: 71045; 71275; 74177; 80053; 82550; 82553; 82728; 83605; 83615; 83690; 85025; 85379; 86140; 93005; 93041; 96361; 96374; 99285; J2405; Q9967